=== PATIENT | male | born 1950 | race Caucasian/White ===

== ENCOUNTER 2022-11-12 09:18 | Emergency (ER) | payer OTHER ==
[~2022-11-12] VITALS: Ht 180.3 cm; Wt 82.0 kg
[2022-11-12 10:15] LABS: Basophils # (auto) 0.1 10 ^3/uL (0-0.2); Basophils % (auto) 0.7 % (0.0-2.0); Eosinophils # (auto) 0.1 10 ^3/uL (0-0.8); Hematocrit 43.7 % (41.0-53.0); Lymphocytes # (auto) 1.6 10 ^3/uL (0.4-5.4); Mean Corpuscular Hemoglobin 33.1 pg (28.0-32.0); Mean Corpuscular Hgb Conc. 34.3 g/dL (32.0-36.0); Mean Corpuscular Volume 96.4 fL (80.0-100.0); Monocytes # (auto) 0.6 10 ^3/uL (0-1.3); Monocytes % (auto) 5.6 % (0.0-12.0); Neutrophils # (auto) 8.5 10 ^3/uL (1.6-8.6); Neutrophils % (auto) 77.7 % (37.0-80.0); Nucleated Red Blood Cells % 0.1 %; Red Blood Cells 4.54 10^6/uL (4.5-5.90); Red Cell Distribution Width 14.9 % (11.8-14.3)
[2022-11-12 10:35] LABS: Albumin 3.7 g/dL (3.4-5.0); Calcium 8.5 mg/dL (8.5-10.1); Potassium 4.1 mmol/L (3.5-5.1)
[2022-11-12 10:40] LABS: BUN/Creatinine Ratio 9.9; Bilirubin, Total 0.6 mg/dL (0.2-1.0); Total Protein 7.1 g/dL (6.4-8.2)
[2022-11-12] MEDS ORDERED: BACDST PO (10:48)
[2022-11-12 10:59] LABS: Urine Bacteria NONE SEEN /hpf (None Seen); Urine Blood 3+ /uL (Negative); Urine Specific Gravity 1.021 (1.001-1.035); Urine WBC 391 /hpf (0 - 3)
[2022-11-12] MEDS ORDERED: cefTRIAXone SOD 1,000 MG VL IM ONE (12:30)
[2022-11-12 12:37] VITALS: BP 131/70
[2022-11-12] MEDS ORDERED: cefTRIAXone 1GM/50ML D5W 50 ML IV ONE (12:45)
[2022-11-12] MEDS ORDERED: LIDOCAINE 2% JELLY 11ml (GLYDO) ONE (13:27)
[2022-11-12] MEDS ORDERED: HYDROcodone-ACET 10/325MG TAB PO ONE (14:30)
== END 2022-11-12 16:35 | disposition home or self-care (01) ==
LOC: ER 09:20
DX: T83.84XA Pain due to genitourinary prosthetic devices, implants and grafts, initial encounter (principal); N40.0 Benign prostatic hyperplasia without lower urinary tract symptoms; N39.0 Urinary tract infection, site not specified; E78.5 Hyperlipidemia, unspecified; F17.210 Nicotine dependence, cigarettes, uncomplicated; F12.90 Cannabis use, unspecified, uncomplicated
CPT/HCPCS: 36415; 51702; 80053; 81001; 84484; 85025; 96365; 99284; J0696

== ENCOUNTER 2022-11-21 14:37 | Emergency (ER) | payer OTHER ==
[~2022-11-21] VITALS: Ht 180.3 cm; Wt 80.0 kg
[2022-11-21 14:37] VITALS: BP 122/61
[~2022-11-21 14:37] MED LIST: BACDST PO
[2022-11-23] MEDS ORDERED: LEVO200I5 IV (06:02)
[2022-11-23] MEDS ORDERED: TAM04C PO (06:02)
[2022-11-23] MEDS ORDERED: GABA100C PO (06:02)
== END 2022-11-22 00:52 | disposition left against medical advice (07) ==
LOC: ER 14:37
DX: M54.50 Low back pain, unspecified (principal); Z53.21 Procedure and treatment not carried out due to patient leaving prior to being seen by health care provider

== ENCOUNTER 2022-11-22 08:17 | Inpatient (IN) | payer OTHER ==
[~2022-11-22] VITALS: Ht 180.3 cm; Wt 77.3 kg
[2022-11-22 09:20] LABS: Basophils # (auto) 0 10 ^3/uL (0-0.2); Basophils % (auto) 0.5 % (0.0-2.0); Eosinophils # (auto) 0.1 10 ^3/uL (0-0.8); Eosinophils % (auto) 1.9 % (0.0-7.0); Hematocrit 39.6 % (41.0-53.0); Hemoglobin 13.5 g/dL (13.5-17.5); Lymphocytes % (auto) 14.4 % (10.0-50.0); Mean Corpuscular Hemoglobin 32.5 pg (28.0-32.0); Mean Corpuscular Hgb Conc. 34.1 g/dL (32.0-36.0); Mean Corpuscular Volume 95.3 fL (80.0-100.0); Monocytes # (auto) 0.4 10 ^3/uL (0-1.3); Monocytes % (auto) 5.4 % (0.0-12.0); Neutrophils # (auto) 5.3 10 ^3/uL (1.6-8.6); Neutrophils % (auto) 77.8 % (37.0-80.0); Nucleated Red Blood Cells % 0.1 %; Red Blood Cells 4.16 10^6/uL (4.5-5.90); Red Cell Distribution Width 14.8 % (11.8-14.3); White Blood Cell 6.8 10^3/uL (4.4-10.8)
[2022-11-22 09:42] LABS: Albumin 3.7 g/dL (3.4-5.0); BUN/Creatinine Ratio 13.3; Calcium 7.9 mg/dL (8.5-10.1)
[2022-11-22 09:44] LABS: Bilirubin, Total 0.6 mg/dL (0.2-1.0); Total Protein 6.1 g/dL (6.4-8.2)
[2022-11-22 13:02] LABS: Urine Bacteria NONE SEEN /hpf (None Seen); Urine Blood 2+ /uL (Negative); Urine Mucus FEW (None Seen); Urine Specific Gravity 1.032 (1.001-1.035); Urine WBC 5 /hpf (0 - 3)
[2022-11-22] MEDS ORDERED: MORPHINE SULFATE INJ 2 MG/ml SYRG IV PRN (17:30)
[2022-11-22] MEDS ORDERED: ONDANSETRON HCL 4 MG/2 ML VIAL IV PRN (17:30)
[2022-11-22] MEDS: SODIUM CHLORIDE 0.9% 1,000 ML IV SCH (17:30)
[2022-11-22] MEDS ORDERED: NITROGLYCERIN 0.4 MG SL TAB SL PRN (17:30)
[2022-11-22] MEDS: TAMSULOSIN HYDROCHLORIDE 0.4 MG CAP PO SCH (18:00)
[2022-11-22 18:34] LABS: Free T4 (Free Thyroxine) 0.75 ng/dL (0.89-1.76)
[2022-11-22] MEDS: HYDROcodone-ACET 5/325MG TAB PO PRN (21:26)
[2022-11-22] MEDS: GABAPENTIN 300 MG CAP PO SCH (21:53)
[2022-11-23] MEDS: SODIUM CHLORIDE 0.9% 1,000 ML IV SCH ×2 (03:39→13:34)
[2022-11-23] MEDS: HYDROcodone-ACET 5/325MG TAB PO PRN (04:41)
[2022-11-23 05:00] VITALS: BP 100/55
[2022-11-23] MEDS ORDERED: TAM04C PO (06:02)
[2022-11-23] MEDS ORDERED: GABA100C PO (06:02)
[2022-11-23] MEDS ORDERED: LEVO200I5 IV (06:02)
[2022-11-23] MEDS: GABAPENTIN 300 MG CAP PO SCH ×3 (06:03→22:00)
[2022-11-23 06:39] LABS: Calcium 7.6 mg/dL (8.5-10.1); Potassium 3.9 mmol/L (3.5-5.1)
[2022-11-23 08:00] VITALS: BP 93/59
[2022-11-23] MEDS: ENOXAPARIN SOD 40 MG/0.4 ML SYRINGE SC SCH (10:38)
[2022-11-23] MEDS: FAMOTIDINE 20 MG TAB PO SCH (10:38)
[2022-11-23 12:00] VITALS: BP 99/57
[2022-11-23] MEDS ORDERED: LEVOTHYROXINE SODIUM 25 MCG TAB PO ONE (13:45)
[2022-11-23] MEDS ORDERED: CYANOCOBALAMIN (B-12) 1000 MCG/1 ML VIAL IM ONE (13:45)
[2022-11-23 16:00] VITALS: BP 95/51
[2022-11-23] MEDS: TAMSULOSIN HYDROCHLORIDE 0.4 MG CAP PO SCH (18:30)
[2022-11-23] MEDS: methylPREDNISolone 4 MG TAB PO SCH ×2 (18:30→23:04)
[2022-11-23 20:00] VITALS: BP 92/50
[2022-11-23 22:00] VITALS: BP 92/50
[2022-11-23] MEDS: CALAMINE TOPical LOTION180 ML TOP SCH (22:00)
[2022-11-24 01:21] VITALS: BP 92/51
[2022-11-24] MEDS ORDERED: HYDROcodone-ACET 5/325MG TAB PO ONE (03:45)
[2022-11-24 05:00] VITALS: BP 101/56
[2022-11-24] MEDS: GABAPENTIN 300 MG CAP PO SCH ×3 (06:00→21:41)
[2022-11-24] MEDS: LEVOTHYROXINE SODIUM 25 MCG TAB PO SCH (06:03)
[2022-11-24] MEDS: methylPREDNISolone 4 MG TAB PO SCH ×2 (06:03→13:37)
[2022-11-24 08:00] VITALS: BP 154/64
[2022-11-24] MEDS: CYANOCOBALAMIN 500 MCG TAB PO SCH (10:11)
[2022-11-24] MEDS: FAMOTIDINE 20 MG TAB PO SCH (10:11)
[2022-11-24] MEDS: ENOXAPARIN SOD 40 MG/0.4 ML SYRINGE SC SCH (10:12)
[2022-11-24] MEDS: CALAMINE TOPical LOTION180 ML TOP SCH ×2 (10:12→21:43)
[2022-11-24] MEDS: CHOLECALCIFEROL (VITD3) 1,000UNIT=25mCg TAB PO SCH (10:12)
[2022-11-24] MEDS ORDERED: HYDROcodone-ACET 5/325MG TAB PO PRN (11:15)
[2022-11-24 12:00] VITALS: BP 101/59
[2022-11-24 16:00] VITALS: BP 100/50
[2022-11-24] MEDS: TAMSULOSIN HYDROCHLORIDE 0.4 MG CAP PO SCH (17:46)
[2022-11-24 22:00] VITALS: BP 96/53
[2022-11-24] MEDS ORDERED: CILOSTAZOL 100 MG TAB PO SCH (22:00)
[2022-11-24] MEDS ORDERED: methylPREDNISolone 4 MG TAB PO SCH (22:00)
[2022-11-25 05:00] VITALS: BP 100/54
[2022-11-25] MEDS: LEVOTHYROXINE SODIUM 25 MCG TAB PO SCH (06:35)
[2022-11-25] MEDS: GABAPENTIN 300 MG CAP PO SCH (06:35)
[2022-11-25] MEDS ORDERED: methylPREDNISolone SOD SUCC 40 MG/ML VL IV ONE (08:00)
[2022-11-25] MEDS ORDERED: LEV50T PO (08:07)
[2022-11-25] MEDS ORDERED: CALCCHW17 PO (08:07)
[2022-11-25] MEDS ORDERED: PRED20TA2 PO (08:07)
[2022-11-25] MEDS ORDERED: CARI-277 PO (08:07)
[2022-11-25] MEDS ORDERED: FAMO-161 PO (08:07)
[2022-11-25] MEDS ORDERED: CEL100T PO (08:07)
[2022-11-25] MEDS ORDERED: CYAN1TAB14 PO (08:07)
[2022-11-25] MEDS ORDERED: GABA300C10 PO (08:07)
[2022-11-25] MEDS ORDERED: CALALOT EX (08:13)
[2022-11-25 09:00] VITALS: BP 95/65
[2022-11-25] MEDS: ENOXAPARIN SOD 40 MG/0.4 ML SYRINGE SC SCH (09:13)
[2022-11-25] MEDS: FAMOTIDINE 20 MG TAB PO SCH (09:15)
[2022-11-25] MEDS: CYANOCOBALAMIN 500 MCG TAB PO SCH (09:15)
[2022-11-25] MEDS: CHOLECALCIFEROL (VITD3) 1,000UNIT=25mCg TAB PO SCH (09:16)
[2022-11-25 09:21] VITALS: BP 95/65
[2022-11-25] MEDS ORDERED: CELECOXIB 100 MG CAP PO SCH (10:00)
== END 2022-11-25 09:55 | disposition home health service (06) | DRG 552 ==
LOC: ER 08:17 → OVERFLOW 17:23 → CENTRAL 11-23 04:09
PROVIDERS: ADMIT Hospitalist; ATTEND Hospitalist
DX: M48.061 Spinal stenosis, lumbar region without neurogenic claudication (principal); N17.9 Acute kidney failure, unspecified; N39.0 Urinary tract infection, site not specified; F17.210 Nicotine dependence, cigarettes, uncomplicated; G62.9 Polyneuropathy, unspecified; N40.0 Benign prostatic hyperplasia without lower urinary tract symptoms; Z20.822 Contact with and (suspected) exposure to COVID-19; M48.02 Spinal stenosis, cervical region; M47.22 Other spondylosis with radiculopathy, cervical region; M47.816 Spondylosis without myelopathy or radiculopathy, lumbar region; J44.9 Chronic obstructive pulmonary disease, unspecified; Z82.49 Family history of ischemic heart disease and other diseases of the circulatory system
CPT/HCPCS: 36415; 71045; 72141; 72148; 76775; 78582; 80048; 80053; 81001; 82306; 82607; 83880; 84439; 84443; 84484; 85025; 85379; 87426; 87804; 93005; 93306; 93925; 93970; 97110; 97116; 97163; 97530; G0378; J2405

== ENCOUNTER 2022-12-06 14:46 | Inpatient (IN) | payer OTHER ==
[~2022-12-06] VITALS: Ht 185.4 cm; Wt 81.8 kg
[~2022-12-06 14:46] MED LIST changes: -BACDST PO; +CALALOT EX; +CALCCHW17 PO; +CARI-277 PO; +CEL100T PO; +CYAN1TAB14 PO; +FAMO-161 PO; +GABA300C10 PO; +LEV50T PO; +PRED20TA2 PO; +TAM04C PO
[2022-12-06 17:24] LABS: Basophils # (auto) 0.1 10 ^3/uL (0-0.2); Basophils % (auto) 1.5 % (0.0-2.0); Eosinophils # (auto) 0.2 10 ^3/uL (0-0.8); Hematocrit 35.7 % (41.0-53.0); Lymphocytes # (auto) 0.5 10 ^3/uL (0.4-5.4); Lymphocytes % (auto) 8.2 % (10.0-50.0); Mean Corpuscular Hemoglobin 32.7 pg (28.0-32.0); Mean Corpuscular Hgb Conc. 33.8 g/dL (32.0-36.0); Mean Corpuscular Volume 96.8 fL (80.0-100.0); Monocytes # (auto) 0.5 10 ^3/uL (0-1.3); Neutrophils # (auto) 4.5 10 ^3/uL (1.6-8.6); Neutrophils % (auto) 79.3 % (37.0-80.0); Nucleated Red Blood Cells % 0.2 %; Red Blood Cells 3.68 10^6/uL (4.5-5.90); Red Cell Distribution Width 15.2 % (11.8-14.3); White Blood Cell 5.7 10^3/uL (4.4-10.8)
[2022-12-06 17:45] LABS: BUN/Creatinine Ratio 20.3; Bilirubin, Total 1.3 mg/dL (0.2-1.0); Total Protein 5.8 g/dL (6.4-8.2)
[2022-12-06] MEDS ORDERED: ACETAMINOPHEN 325 MG TAB PO ONE (22:15)
[2022-12-06] MEDS ORDERED: ALBUMIN 25% 100 ML IV ONE (23:15)
[2022-12-06] MEDS ORDERED: SODIUM CHLORIDE 0.9% 1,000 ML IV ONE (23:15)
[2022-12-07] MEDS ORDERED: HYDROcodone-ACET 10/325MG TAB PO ONE (03:30)
[2022-12-07] MEDS ORDERED: SODIUM CHLORIDE 0.9% 1,000 ML IV SCH (05:30)
[2022-12-07] MEDS ORDERED: ONDANSETRON HCL 4 MG/2 ML VIAL IV PRN (05:30)
[2022-12-07] MEDS ORDERED: ALBUTEROL SULF 2.5 MG/0.5ML(0.5%) NEB SOLN NEB PRN (05:30)
[2022-12-07] MEDS ORDERED: LEVOTHYROXINE SODIUM 50 MCG TAB PO SCH (07:00)
[2022-12-07] MEDS ORDERED: CLOPIDOGREL BISULFATE 75 MG TAB PO SCH (10:00)
[2022-12-07] MEDS ORDERED: ENOXAPARIN SOD 40 MG/0.4 ML SYRINGE SC SCH (10:00)
[2022-12-07] MEDS ORDERED: PANTOPRAZOLE 40 MG TAB PO SCH (10:00)
[2022-12-07] MEDS ORDERED: predniSONE 20 MG TAB PO SCH (10:00)
[2022-12-07 10:17] LABS: Free T4 (Free Thyroxine) 0.97 ng/dL (0.89-1.76)
[2022-12-07 10:21] LABS: BUN/Creatinine Ratio 22.8; Bilirubin, Total 0.7 mg/dL (0.2-1.0); Calcium 7.7 mg/dL (8.5-10.1); Magnesium 2.4 mg/dL (1.6-2.6); Phosphorus 1.8 mg/dL (2.5-4.90); Potassium 3.8 mmol/L (3.5-5.1); Total Protein 5.5 g/dL (6.4-8.2)
[2022-12-07] MEDS: ACETAMINOPHEN 325 MG TAB PO PRN ×2 (10:57→16:11)
[2022-12-07 11:01] VITALS: BP 103/58
[2022-12-07] MEDS ORDERED: POTASSIUM PHOSPHATE 44 MEQ in D5W 5% 250 ML IV ONE (11:30)
[2022-12-07] MEDS ORDERED: CYANOCOBALAMIN (B-12) 1000 MCG/1 ML VIAL IM ONE (11:30)
[2022-12-07] MEDS ORDERED: ERGOCALCIFEROL 50,000 UNIT(1.25MG) CAP PO SCH (11:30)
[2022-12-07 13:27] LABS: Urine Bacteria NONE SEEN /hpf (None Seen); Urine Blood Negative /uL (Negative); Urine Specific Gravity 1.031 (1.001-1.035); Urine WBC 2 /hpf (0 - 3)
[2022-12-07 13:56] LABS: Cannabinoid Screen, Urine POSITIVE (NEGATIVE)
[2022-12-07 13:58] LABS: Alcohol, Urine < 3.0 mg/dL (0-10); Amphetamine Screen, Urine NEGATIVE (NEGATIVE); Barbiturate Scree,Urine NEGATIVE (NEGATIVE); Benzodiazephine Screen, Urine NEGATIVE (NEGATIVE); Cocaine Screen, Urine NEGATIVE (NEGATIVE); Opiate Scree,Urine NEGATIVE (NEGATIVE); Phencyclidine Screen, Urine NEGATIVE (NEGATIVE)
[2022-12-07 14:00] VITALS: BP 130/70
[2022-12-07] MEDS ORDERED: ERGO1CAP23 PO (15:37)
[2022-12-07] MEDS ORDERED: LEV50T PO ×3 (15:37→15:47)
[2022-12-07] MEDS ORDERED: TAMSULOSIN HYDROCHLORIDE 0.4 MG CAP PO SCH (18:00)
[2022-12-07] MEDS ORDERED: LEVO750T8 PO (18:26)
[2022-12-08] MEDS ORDERED: LEVOTHYROXINE SODIUM 50 MCG TAB PO SCH (07:00)
== END 2022-12-07 19:28 | disposition home or self-care (01) | DRG 191 ==
LOC: EDBD 14:46 → ER 14:46 → OVERFLOW 12-07 05:26
PROVIDERS: ADMIT Nurse Practitioner; ATTEND Internal Medicine
DX: J47.9 Bronchiectasis, uncomplicated (principal); E44.0 Moderate protein-calorie malnutrition; N17.9 Acute kidney failure, unspecified; I95.9 Hypotension, unspecified; Z88.1 Allergy status to other antibiotic agents; E03.9 Hypothyroidism, unspecified; E55.9 Vitamin D deficiency, unspecified; E78.5 Hyperlipidemia, unspecified; E86.0 Dehydration; F17.210 Nicotine dependence, cigarettes, uncomplicated; I69.30 Unspecified sequelae of cerebral infarction; N40.0 Benign prostatic hyperplasia without lower urinary tract symptoms; Z82.49 Family history of ischemic heart disease and other diseases of the circulatory system; R74.01 Elevation of levels of liver transaminase levels; Z20.822 Contact with and (suspected) exposure to COVID-19; Z68.23 Body mass index [BMI] 23.0-23.9, adult
CPT/HCPCS: 36415; 71045; 71250; 80053; 80307; 81001; 82306; 82607; 83036; 83605; 83735; 83880; 84100; 84439; 84443; 84484; 85025; 87040; 87426; 93005; 96365; 96372; G0378; J7060; P9047

== ENCOUNTER 2023-05-02 10:37 | Emergency (ER) | payer OTHER ==
[~2023-05-02] VITALS: Ht 154.9 cm; Wt 79.4 kg
[~2023-05-02 10:37] MED LIST changes: +ERGO1CAP23 PO; +GABA-1250 PO; -GABA300C10 PO; +LEVO750T8 PO; -TAM04C PO; +TAMS-35 PO
[2023-05-02 10:42] VITALS: BP 137/86; PULSE 81; RESP 20; TEMP 99; O2SAT 99
[2023-05-02] MEDS ORDERED: NEOMYCIN-BACITRACIN-POLYM UNITDOSE PKG TOP OINT TOP ONE (13:00)
== END 2023-05-02 13:26 | disposition home or self-care (01) ==
LOC: ER 10:37
DX: R51.9 Headache, unspecified (principal); J44.9 Chronic obstructive pulmonary disease, unspecified; E78.5 Hyperlipidemia, unspecified; F17.210 Nicotine dependence, cigarettes, uncomplicated; Z86.73 Personal history of transient ischemic attack (TIA), and cerebral infarction without residual deficits; Z79.2 Long term (current) use of antibiotics; Z79.899 Other long term (current) drug therapy; Z88.1 Allergy status to other antibiotic agents; Y04.2XXA Assault by strike against or bumped into by another person, initial encounter; Y93.89 Activity, other specified; Y92.89 Other specified places as the place of occurrence of the external cause; Y99.8 Other external cause status
CPT/HCPCS: 70450

== ENCOUNTER 2023-05-22 16:18 | Emergency (ER) | payer OTHER ==
[~2023-05-22] VITALS: Ht 180.3 cm; Wt 79.5 kg
[2023-05-22 16:25] VITALS: BP 118/66; RESP 18; O2SAT 97
[2023-05-22 16:30] VITALS: PULSE 67
[2023-05-22 16:55] LABS: Basophils # (auto) 0 10 ^3/uL (0-0.2); Basophils % (auto) 0.5 % (0.0-2.0); Eosinophils # (auto) 0 10 ^3/uL (0-0.8); Eosinophils % (auto) 0.2 % (0.0-7.0); Hematocrit 39.9 % (41.0-53.0); Hemoglobin 13.5 g/dL (13.5-17.5); Lymphocytes # (auto) 0.9 10 ^3/uL (0.4-5.4); Lymphocytes % (auto) 9.9 % (10.0-50.0); Mean Corpuscular Volume 94.3 fL (80.0-100.0); Monocytes # (auto) 0.2 10 ^3/uL (0-1.3); Monocytes % (auto) 2.2 % (0.0-12.0); Neutrophils # (auto) 7.5 10 ^3/uL (1.6-8.6); Neutrophils % (auto) 87.2 % (37.0-80.0); Red Blood Cells 4.23 10^6/uL (4.5-5.90); Red Cell Distribution Width 14.2 % (11.8-14.3); White Blood Cell 8.6 10^3/uL (4.4-10.8)
[2023-05-22 17:12] LABS: INR 1.06 (0.9-1.15); Partial Thromboplastin Time 27.8 SEC (24.5-34.5); Prothrombin Time 11.1 sec (9.3-11.8)
[2023-05-22 17:15] LABS: Alanine Aminotransferase 19 U/L (7-40); Albumin 4.6 g/dL (3.2-4.8); Alkaline Phosphatase 110 U/L (46-116); Anion Gap 6.5 (5-15); Aspartate Aminotransferase 20 U/L (13-40); Blood Urea Nitrogen 12 mg/dL (9-23); Calcium 9.4 mg/dL (8.7-10.4); Carbon Dioxide 25.5 mmol/L (20-30); Chloride 105 mmol/L (98-107); Glucose 134 mg/dL (74-106); Potassium 4.4 mmol/L (3.5-5.1); Sodium 137 mmol/L (136-145)
[2023-05-22 17:16] LABS: Bilirubin, Total 0.4 mg/dL (0.2-1.0); Total Protein 6.6 g/dL (5.7-8.2)
[2023-05-22] MEDS ORDERED: KETOROLAC TROMETH 30 MG/ML 1ML VIAL IM ONE (18:45)
== END 2023-05-22 22:38 | disposition home or self-care (01) ==
LOC: ER 16:18
DX: S06.0X0A Concussion without loss of consciousness, initial encounter (principal); J44.9 Chronic obstructive pulmonary disease, unspecified; E78.5 Hyperlipidemia, unspecified; F17.210 Nicotine dependence, cigarettes, uncomplicated; F12.90 Cannabis use, unspecified, uncomplicated; Z88.0 Allergy status to penicillin; Z79.899 Other long term (current) drug therapy; Z86.73 Personal history of transient ischemic attack (TIA), and cerebral infarction without residual deficits; X58.XXXA Exposure to other specified factors, initial encounter; Y93.89 Activity, other specified; Y92.89 Other specified places as the place of occurrence of the external cause; Y99.8 Other external cause status
CPT/HCPCS: 36415; 70450; 71045; 80053; 83880; 84484; 85025; 85610; 85730; 93005

== ENCOUNTER 2023-05-29 10:01 | Emergency (ER) | payer OTHER ==
[~2023-05-29] VITALS: Ht 180.3 cm; Wt 76.0 kg
[2023-05-29 10:46] LABS: Basophils # (auto) 0.1 10 ^3/uL (0-0.2); Eosinophils # (auto) 0.1 10 ^3/uL (0-0.8); Eosinophils % (auto) 1.7 % (0.0-7.0); Hematocrit 42.4 % (41.0-53.0); Lymphocytes # (auto) 1.2 10 ^3/uL (0.4-5.4); Mean Corpuscular Hemoglobin 31.1 pg (28.0-32.0); Mean Corpuscular Hgb Conc. 32.9 g/dL (32.0-36.0); Mean Corpuscular Volume 94.6 fL (80.0-100.0); Monocytes # (auto) 0.6 10 ^3/uL (0-1.3); Monocytes % (auto) 7.9 % (0.0-12.0); Neutrophils # (auto) 5.5 10 ^3/uL (1.6-8.6); Neutrophils % (auto) 73.4 % (37.0-80.0); Red Blood Cells 4.48 10^6/uL (4.5-5.90); Red Cell Distribution Width 14.2 % (11.8-14.3); White Blood Cell 7.5 10^3/uL (4.4-10.8)
[2023-05-29 10:59] LABS: Alanine Aminotransferase 21 U/L (7-40); Albumin 4.5 g/dL (3.2-4.8); Alkaline Phosphatase 116 U/L (46-116); Anion Gap 6.9 (5-15); Aspartate Aminotransferase 30 U/L (13-40); BUN/Creatinine Ratio 10.7 (10.0-20.0); Bilirubin, Total 0.6 mg/dL (0.2-1.0); Blood Urea Nitrogen 12 mg/dL (9-23); Calcium 9.2 mg/dL (8.5-10.1); Carbon Dioxide 28.1 mmol/L (20-30); Chloride 105 mmol/L (98-107); Glucose 96 mg/dL (74-106); Potassium 3.9 mmol/L (3.5-5.1); Sodium 140 mmol/L (136-145); Total Protein 6.9 g/dL (5.7-8.2)
[2023-05-29 11:05] LABS: INR 1.07 (0.9-1.15); Partial Thromboplastin Time 30.5 SEC (24.5-34.5); Prothrombin Time 11.2 sec (9.3-11.8)
[2023-05-29 11:21] LABS: Urine Bacteria NONE SEEN /hpf (None Seen); Urine Blood Negative /uL (Negative); Urine Clarity Clear (Clear); Urine Color Yellow (Yellow); Urine Protein, UAD Negative (Negative); Urine Specific Gravity 1.009 (1.001-1.035); Urine Urobilinogen Normal (Negative); Urine WBC <1 /hpf (0 - 3); Urine pH 5.5 (5.0-8.0)
[2023-05-29 13:08] VITALS: BP 132/68; PULSE 62; RESP 19; TEMP 98.5; O2SAT 100
== END 2023-05-29 13:11 | disposition home or self-care (01) ==
LOC: ER 10:01
DX: R53.1 Weakness (principal); R05.9 Cough, unspecified; E78.5 Hyperlipidemia, unspecified; J44.9 Chronic obstructive pulmonary disease, unspecified; F17.210 Nicotine dependence, cigarettes, uncomplicated; F12.90 Cannabis use, unspecified, uncomplicated; Z88.1 Allergy status to other antibiotic agents; Z79.899 Other long term (current) drug therapy; Z86.73 Personal history of transient ischemic attack (TIA), and cerebral infarction without residual deficits
CPT/HCPCS: 36415; 71046; 80053; 81001; 85025; 85610; 85730; 93005

== ENCOUNTER 2023-06-07 11:08 | Emergency (ER) | payer OTHER ==
[~2023-06-07] VITALS: Ht 180.3 cm; Wt 79.7 kg
[2023-06-07] MEDS ORDERED: IOHEXOL 300 MG/ML 100ML BOTTLE IJ ONE ×2 (13:57→14:38)
[2023-06-07 14:33] LABS: Basophils # (auto) 0.1 10 ^3/uL (0-0.2); Eosinophils # (auto) 0 10 ^3/uL (0-0.8); Eosinophils % (auto) 0.2 % (0.0-7.0); Hematocrit 40.5 % (41.0-53.0); Hemoglobin 13.5 g/dL (13.5-17.5); Lymphocytes # (auto) 0.8 10 ^3/uL (0.4-5.4); Mean Corpuscular Hemoglobin 31.7 pg (28.0-32.0); Mean Corpuscular Hgb Conc. 33.3 g/dL (32.0-36.0); Mean Corpuscular Volume 95.4 fL (80.0-100.0); Monocytes # (auto) 0.2 10 ^3/uL (0-1.3); Monocytes % (auto) 2.5 % (0.0-12.0); Neutrophils # (auto) 6.5 10 ^3/uL (1.6-8.6); Neutrophils % (auto) 86.3 % (37.0-80.0); Red Blood Cells 4.24 10^6/uL (4.5-5.90); Red Cell Distribution Width 14.7 % (11.8-14.3); White Blood Cell 7.5 10^3/uL (4.4-10.8)
[2023-06-07 14:43] LABS: Alanine Aminotransferase 30 U/L (7-40); Albumin 4.7 g/dL (3.2-4.8); Alkaline Phosphatase 201 U/L (46-116); Anion Gap 6 (5-15); Aspartate Aminotransferase 48 U/L (13-40); BUN/Creatinine Ratio 10.5 (10.0-20.0); Bilirubin, Total 0.5 mg/dL (0.2-1.0); Blood Urea Nitrogen 11 mg/dL (9-23); Calcium 9.4 mg/dL (8.7-10.4); Carbon Dioxide 27 mmol/L (20-30); Chloride 104 mmol/L (98-107); Glucose 121 mg/dL (74-106); Potassium 4.5 mmol/L (3.5-5.1); Sodium 137 mmol/L (136-145); Total Protein 7.3 g/dL (5.7-8.2)
[2023-06-07 15:00] VITALS: BP 130/65; PULSE 65; RESP 18; O2SAT 100
== END 2023-06-07 16:19 | disposition home or self-care (01) ==
LOC: ER 11:08
DX: R91.1 Solitary pulmonary nodule (principal); R19.03 Right lower quadrant abdominal swelling, mass and lump; J44.9 Chronic obstructive pulmonary disease, unspecified; E78.5 Hyperlipidemia, unspecified; F17.210 Nicotine dependence, cigarettes, uncomplicated; F12.90 Cannabis use, unspecified, uncomplicated; Z86.73 Personal history of transient ischemic attack (TIA), and cerebral infarction without residual deficits; Z88.8 Allergy status to other drugs, medicaments and biological substances; Z79.899 Other long term (current) drug therapy
CPT/HCPCS: 36415; 74177; 80053; 85025; 99285; Q9967

== ENCOUNTER 2023-06-14 14:56 | Emergency (ER) | payer OTHER ==
[~2023-06-14] VITALS: Ht 182.9 cm; Wt 81.8 kg
[2023-06-14 15:20] VITALS: PULSE 58; RESP 13; TEMP 98.1; O2SAT 95
[2023-06-14 15:59] LABS: Basophils # (auto) 0.1 10 ^3/uL (0-0.2); Basophils % (auto) 0.9 % (0.0-2.0); Eosinophils # (auto) 0 10 ^3/uL (0-0.8); Eosinophils % (auto) 0.1 % (0.0-7.0); Hematocrit 38.3 % (41.0-53.0); Hemoglobin 12.9 g/dL (13.5-17.5); Lymphocytes # (auto) 0.7 10 ^3/uL (0.4-5.4); Lymphocytes % (auto) 8.7 % (10.0-50.0); Mean Corpuscular Hgb Conc. 33.7 g/dL (32.0-36.0); Mean Corpuscular Volume 94.9 fL (80.0-100.0); Monocytes # (auto) 0.3 10 ^3/uL (0-1.3); Monocytes % (auto) 3.1 % (0.0-12.0); Neutrophils # (auto) 7.3 10 ^3/uL (1.6-8.6); Neutrophils % (auto) 87.2 % (37.0-80.0); Nucleated Red Blood Cells % 0.1 %; Red Blood Cells 4.03 10^6/uL (4.5-5.90); Red Cell Distribution Width 14.8 % (11.8-14.3); White Blood Cell 8.4 10^3/uL (4.4-10.8)
[2023-06-14 16:18] LABS: Alanine Aminotransferase 54 U/L (7-40); Albumin 4.5 g/dL (3.2-4.8); Alkaline Phosphatase 168 U/L (46-116); Anion Gap 7 (5-15); Aspartate Aminotransferase 49 U/L (13-40); BUN/Creatinine Ratio 13.6 (10.0-20.0); Bilirubin, Total 0.5 mg/dL (0.2-1.0); Blood Urea Nitrogen 16 mg/dL (9-23); Calcium 9.1 mg/dL (8.7-10.4); Carbon Dioxide 28 mmol/L (20-30); Chloride 105 mmol/L (98-107); Glucose 146 mg/dL (74-106); Potassium 4.4 mmol/L (3.5-5.1); Sodium 140 mmol/L (136-145)
[2023-06-14 16:45] LABS: Urine Bacteria FEW /hpf (None Seen); Urine Blood Negative /uL (Negative); Urine Clarity Clear (Clear); Urine Color Colorless (Yellow); Urine Protein, UAD Negative (Negative); Urine Specific Gravity 1.009 (1.001-1.035); Urine Urobilinogen Normal (Negative); Urine WBC <1 /hpf (0 - 3)
[2023-06-14] MEDS ORDERED: SODIUM CHLORIDE 0.9% 1,000 ML IV ONE (17:15)
[2023-06-14 17:45] LABS: INR 1.09 (0.9-1.15); Partial Thromboplastin Time 29.6 SEC (24.5-34.5); Prothrombin Time 11.4 sec (9.3-11.8)
[2023-06-14 18:00] VITALS: BP 119/84; PULSE 60; RESP 16; O2SAT 95
== END 2023-06-14 18:20 | disposition left against medical advice (07) ==
LOC: EDBD 14:56 → ER 14:56 → EDUNIT# 14:56 → ER 18:20
DX: G45.9 Transient cerebral ischemic attack, unspecified (principal)
CPT/HCPCS: 36415; 71045; 80053; 81001; 83880; 84484; 85025; 85610; 85730; 93005; 96360

== ENCOUNTER 2023-06-16 05:14 | Inpatient (IN) | payer OTHER ==
[~2023-06-16] VITALS: Ht 182.9 cm; Wt 104.0 kg
[2023-06-16 05:39] VITALS: O2SAT 95
[2023-06-16 06:58] LABS: Urine Bacteria NONE SEEN /hpf (None Seen); Urine Blood Negative /uL (Negative); Urine Clarity Clear (Clear); Urine Color Colorless (Yellow); Urine Protein, UAD Negative (Negative); Urine Specific Gravity 1.008 (1.001-1.035); Urine Urobilinogen Normal (Negative); Urine WBC <1 /hpf (0 - 3)
[2023-06-16 07:07] LABS: Alanine Aminotransferase 59 U/L (7-40); Albumin 4.7 g/dL (3.2-4.8); Alkaline Phosphatase 171 U/L (46-116); Anion Gap 6 (5-15); Aspartate Aminotransferase 54 U/L (13-40); BUN/Creatinine Ratio 10.5 (10.0-20.0); Blood Urea Nitrogen 10 mg/dL (9-23); Calcium 9.2 mg/dL (8.7-10.4); Carbon Dioxide 26 mmol/L (20-30); Chloride 107 mmol/L (98-107); Glucose 82 mg/dL (74-106); Magnesium 2.2 mg/dL (1.6-2.6); Potassium 4.1 mmol/L (3.5-5.1); Sodium 139 mmol/L (136-145)
[2023-06-16 07:08] LABS: Bilirubin, Total 0.5 mg/dL (0.2-1.0); Total Protein 6.6 g/dL (5.7-8.2)
[2023-06-16] MEDS ORDERED: IOHEXOL 350 MG/ML 100ML IJ ONE (07:34)
[2023-06-16 07:36] LABS: Basophils # (auto) 0.1 10 ^3/uL (0-0.2); Basophils % (auto) 0.9 % (0.0-2.0); Eosinophils # (auto) 0.1 10 ^3/uL (0-0.8); Eosinophils % (auto) 1.4 % (0.0-7.0); Hematocrit 38.8 % (41.0-53.0); Lymphocytes # (auto) 2.2 10 ^3/uL (0.4-5.4); Mean Corpuscular Hemoglobin 32.1 pg (28.0-32.0); Mean Corpuscular Hgb Conc. 33.4 g/dL (32.0-36.0); Mean Corpuscular Volume 96.1 fL (80.0-100.0); Monocytes # (auto) 0.8 10 ^3/uL (0-1.3); Monocytes % (auto) 8.3 % (0.0-12.0); Neutrophils # (auto) 6.2 10 ^3/uL (1.6-8.6); Neutrophils % (auto) 66.4 % (37.0-80.0); Nucleated Red Blood Cells % 0.2 %; Red Blood Cells 4.03 10^6/uL (4.5-5.90); Red Cell Distribution Width 15.4 % (11.8-14.3); White Blood Cell 9.4 10^3/uL (4.4-10.8)
[2023-06-16 07:50] VITALS: PULSE 48; RESP 12; O2SAT 97
[2023-06-16] MEDS ORDERED: AZITHROMYCIN 500MG/ 250ML 250 ML IV ONE (08:30)
[2023-06-16] MEDS ORDERED: cefTRIAXone 1GM/50ML D5W 50 ML IV ONE (08:30)
[2023-06-16] MEDS ORDERED: ONDANSETRON HCL 4 MG/2 ML VIAL IV PRN (10:45)
[2023-06-16] MEDS ORDERED: MORPHINE SULFATE INJ 2 MG/ml SYRG IV PRN (10:45)
[2023-06-16] MEDS ORDERED: NITROGLYCERIN 0.4 MG SL TAB SL PRN (10:45)
[2023-06-16] MEDS ORDERED: DOCUSATE SOD 100 MG CAP PO PRN (10:45)
[2023-06-16] MEDS: ZINC SULFATE 220mg CAP or TAB PO SCH (12:40)
[2023-06-16] MEDS: MAGNESIUM OXIDE 400 MG TAB PO SCH ×2 (12:49→22:05)
[2023-06-16] MEDS: MULTIPLE VITAMIN TAB PO SCH (12:49)
[2023-06-16] MEDS: FOLIC ACID 1 MG TAB PO SCH (12:49)
[2023-06-16] MEDS: SODIUM CHLOR 0.9% PF (SALINE LOCK) 10ML VIAL/SYR IV SCH ×2 (12:50→22:06)
[2023-06-16 13:49] LABS: INR 1.1 (0.9-1.15); Partial Thromboplastin Time 27.6 SEC (24.5-34.5); Prothrombin Time 11.5 sec (9.3-11.8)
[2023-06-16] MEDS: GABAPENTIN 300 MG CAP PO SCH ×2 (14:00→22:05)
[2023-06-16] MEDS: ACETAMINOPHEN 325 MG TAB PO PRN (18:20)
[2023-06-16 19:30] VITALS: PULSE 56; RESP 15; O2SAT 93
[2023-06-16] MEDS: CELECOXIB 100 MG CAP PO SCH (22:06)
[2023-06-16 22:59] VITALS: BP 109/62; PULSE 55; RESP 14; TEMP 97.6; O2SAT 97
[2023-06-16 23:03] VITALS: BP 109/62; PULSE 55; RESP 19; TEMP 97.6; O2SAT 97
[2023-06-17] MEDS: ACETAMINOPHEN 325 MG TAB PO PRN (04:00)
[2023-06-17 05:01] VITALS: BP 130/74; PULSE 48; RESP 17; TEMP 97.8; O2SAT 93
[2023-06-17 06:05] LABS: Basophils # (auto) 0 10 ^3/uL (0-0.2); Basophils % (auto) 0.6 % (0.0-2.0); Eosinophils # (auto) 0.2 10 ^3/uL (0-0.8); Eosinophils % (auto) 2.4 % (0.0-7.0); Hematocrit 37.6 % (41.0-53.0); Hemoglobin 12.4 g/dL (13.5-17.5); Lymphocytes # (auto) 1.3 10 ^3/uL (0.4-5.4); Lymphocytes % (auto) 16.4 % (10.0-50.0); Mean Corpuscular Hemoglobin 31.5 pg (28.0-32.0); Mean Corpuscular Volume 95.4 fL (80.0-100.0); Monocytes # (auto) 0.7 10 ^3/uL (0-1.3); Monocytes % (auto) 8.6 % (0.0-12.0); Neutrophils # (auto) 5.5 10 ^3/uL (1.6-8.6); Nucleated Red Blood Cells % 0.1 %; Red Blood Cells 3.94 10^6/uL (4.5-5.90); Red Cell Distribution Width 15.1 % (11.8-14.3); White Blood Cell 7.6 10^3/uL (4.4-10.8)
[2023-06-17 06:20] LABS: Alanine Aminotransferase 59 U/L (7-40); Albumin 3.7 g/dL (3.2-4.8); Alkaline Phosphatase 167 U/L (46-116); Anion Gap 6 (5-15); Aspartate Aminotransferase 65 U/L (13-40); BUN/Creatinine Ratio 10.2 (10.0-20.0); Blood Urea Nitrogen 9 mg/dL (9-23); Calcium 8.9 mg/dL (8.7-10.4); Carbon Dioxide 28 mmol/L (20-30); Chloride 105 mmol/L (98-107); Glucose 75 mg/dL (74-106); Magnesium 2.1 mg/dL (1.6-2.6); Potassium 4.4 mmol/L (3.5-5.1); Sodium 139 mmol/L (136-145)
[2023-06-17 06:21] LABS: Bilirubin, Total 0.5 mg/dL (0.2-1.0); Total Protein 5.8 g/dL (5.7-8.2)
[2023-06-17] MEDS: SODIUM CHLOR 0.9% PF (SALINE LOCK) 10ML VIAL/SYR IV SCH ×3 (06:44→20:31)
[2023-06-17] MEDS: LEVOTHYROXINE SODIUM 50 MCG TAB PO SCH (06:44)
[2023-06-17] MEDS: GABAPENTIN 300 MG CAP PO SCH ×3 (06:44→20:30)
[2023-06-17 08:00] VITALS: BP 171/62; PULSE 55; PULSE 65; RESP 16; RESP 18; TEMP 97.5; O2SAT 95
[2023-06-17 09:18] VITALS: BP 130/67; PULSE 55; RESP 18; TEMP 97.1; O2SAT 95
[2023-06-17] MEDS: TAMSULOSIN HYDROCHLORIDE 0.4 MG CAP PO SCH (09:41)
[2023-06-17] MEDS: CELECOXIB 100 MG CAP PO SCH ×2 (09:41→20:30)
[2023-06-17] MEDS: MULTIPLE VITAMIN TAB PO SCH (09:41)
[2023-06-17] MEDS: MAGNESIUM OXIDE 400 MG TAB PO SCH ×2 (09:41→20:31)
[2023-06-17] MEDS: ZINC SULFATE 220mg CAP or TAB PO SCH (09:41)
[2023-06-17] MEDS: FOLIC ACID 1 MG TAB PO SCH (09:42)
[2023-06-17] MEDS: FAMOTIDINE 20 MG TAB PO SCH (09:42)
[2023-06-17] MEDS: cefTRIAXone 1GM/50ML D5W 50 ML IV SCH (09:42)
[2023-06-17] MEDS: AZITHROMYCIN 500MG/ 250ML 250 ML IV SCH (10:27)
[2023-06-17 12:20] VITALS: BP 105/67; PULSE 57; RESP 19; TEMP 97.8; O2SAT 93
[2023-06-17] MEDS ORDERED: ZOLPIDEM TARTRATE 5 MG TAB PO PRN (12:30)
[2023-06-17 13:13] LABS: COVID19 ANTIGEN SOFIA FIA NEGATIVE (NEGATIVE)
[2023-06-17 20:00] VITALS: PULSE 68; PULSE 74; RESP 18; O2SAT 95
[2023-06-17 22:00] VITALS: BP 100/57; PULSE 68; RESP 18; TEMP 97.8; O2SAT 96
[2023-06-18] MEDS: HYDROcodone-ACET 5/325MG TAB PO PRN ×2 (00:28→07:04)
[2023-06-18 05:00] VITALS: BP 117/74; PULSE 73; RESP 18; TEMP 97.8; O2SAT 92
[2023-06-18] MEDS: GABAPENTIN 300 MG CAP PO SCH ×2 (06:13→13:54)
[2023-06-18] MEDS: LEVOTHYROXINE SODIUM 50 MCG TAB PO SCH (06:13)
[2023-06-18] MEDS: SODIUM CHLOR 0.9% PF (SALINE LOCK) 10ML VIAL/SYR IV SCH ×2 (06:17→13:54)
[2023-06-18 08:00] VITALS: PULSE 66
[2023-06-18 08:46] VITALS: BP 98/57; PULSE 67; RESP 20; TEMP 98.7; O2SAT 93
[2023-06-18] MEDS: MULTIPLE VITAMIN TAB PO SCH (08:53)
[2023-06-18] MEDS: MAGNESIUM OXIDE 400 MG TAB PO SCH (08:53)
[2023-06-18] MEDS: CELECOXIB 100 MG CAP PO SCH (08:54)
[2023-06-18] MEDS: FOLIC ACID 1 MG TAB PO SCH (08:54)
[2023-06-18] MEDS: FAMOTIDINE 20 MG TAB PO SCH (08:54)
[2023-06-18] MEDS: TAMSULOSIN HYDROCHLORIDE 0.4 MG CAP PO SCH (08:54)
[2023-06-18] MEDS: ZINC SULFATE 220mg CAP or TAB PO SCH (08:54)
[2023-06-18] MEDS: cefTRIAXone 1GM/50ML D5W 50 ML IV SCH (08:55)
[2023-06-18] MEDS: AZITHROMYCIN 500MG/ 250ML 250 ML IV SCH (09:54)
[2023-06-18 12:40] VITALS: BP 91/57; PULSE 71; RESP 20; TEMP 98.2; O2SAT 95
== END 2023-06-18 15:00 | disposition left against medical advice (07) | DRG 193 ==
LOC: ER 05:14 → EDBD 05:14 → TELE 10:45 → TELE-WESTW 21:06
PROVIDERS: ADMIT Nurse Practitioner Family; ATTEND Nurse Practitioner Family
DX: J18.9 Pneumonia, unspecified organism (principal); J96.01 Acute respiratory failure with hypoxia; J44.0 Chronic obstructive pulmonary disease with (acute) lower respiratory infection; C78.7 Secondary malignant neoplasm of liver and intrahepatic bile duct; R04.2 Hemoptysis; C78.00 Secondary malignant neoplasm of unspecified lung; E66.9 Obesity, unspecified; R00.1 Bradycardia, unspecified; E78.00 Pure hypercholesterolemia, unspecified; F10.20 Alcohol dependence, uncomplicated; F17.210 Nicotine dependence, cigarettes, uncomplicated; G62.9 Polyneuropathy, unspecified; Z20.822 Contact with and (suspected) exposure to COVID-19; I10 Essential (primary) hypertension; H53.2 Diplopia; E07.9 Disorder of thyroid, unspecified; I95.1 Orthostatic hypotension; K21.9 Gastro-esophageal reflux disease without esophagitis; N40.0 Benign prostatic hyperplasia without lower urinary tract symptoms; Z53.29 Procedure and treatment not carried out because of patient's decision for other reasons; Z82.49 Family history of ischemic heart disease and other diseases of the circulatory system; Z85.820 Personal history of malignant melanoma of skin; Z86.73 Personal history of transient ischemic attack (TIA), and cerebral infarction without residual deficits; Z88.1 Allergy status to other antibiotic agents; Z91.81 History of falling; Z68.31 Body mass index [BMI] 31.0-31.9, adult; Z71.6 Tobacco abuse counseling; Z71.41 Alcohol abuse counseling and surveillance of alcoholic
CPT/HCPCS: 36415; 70450; 71045; 71275; 80053; 81001; 83605; 83690; 83735; 83880; 84484; 85025; 85610; 85730; 87426; 93005; 93306; 96360; 96365; 96368; G0378; J0696

== ENCOUNTER 2023-06-21 22:21 | Inpatient (IN) | payer OTHER ==
[~2023-06-21] VITALS: Ht 180.3 cm; Wt 67.8 kg
[~2023-06-21 22:21] MED LIST changes: -LEVO750T8 PO
[2023-06-21 22:57] LABS: Basophils # (auto) 0.1 10 ^3/uL (0-0.2); Basophils % (auto) 1.3 % (0.0-2.0); Eosinophils # (auto) 0 10 ^3/uL (0-0.8); Eosinophils % (auto) 0.3 % (0.0-7.0); Hematocrit 36.6 % (41.0-53.0); Hemoglobin 12.2 g/dL (13.5-17.5); Lymphocytes # (auto) 1.1 10 ^3/uL (0.4-5.4); Lymphocytes % (auto) 13.8 % (10.0-50.0); Mean Corpuscular Hemoglobin 31.7 pg (28.0-32.0); Mean Corpuscular Hgb Conc. 33.3 g/dL (32.0-36.0); Mean Corpuscular Volume 95.2 fL (80.0-100.0); Monocytes # (auto) 0.6 10 ^3/uL (0-1.3); Monocytes % (auto) 7.3 % (0.0-12.0); Neutrophils % (auto) 77.3 % (37.0-80.0); Nucleated Red Blood Cells % 0.1 %; Red Blood Cells 3.84 10^6/uL (4.5-5.90); Red Cell Distribution Width 15.1 % (11.8-14.3); White Blood Cell 7.7 10^3/uL (4.4-10.8)
[2023-06-21 23:14] LABS: Alanine Aminotransferase 83 U/L (7-40); Albumin 4.4 g/dL (3.2-4.8); Alkaline Phosphatase 239 U/L (46-116); Anion Gap 5 (5-15); Aspartate Aminotransferase 88 U/L (13-40); BUN/Creatinine Ratio 11.9 (10.0-20.0); Bilirubin, Total 0.4 mg/dL (0.2-1.0); Blood Urea Nitrogen 13 mg/dL (9-23); Calcium 9.4 mg/dL (8.7-10.4); Carbon Dioxide 28 mmol/L (20-30); Chloride 105 mmol/L (98-107); Glucose 116 mg/dL (74-106); Potassium 4.5 mmol/L (3.5-5.1); Sodium 138 mmol/L (136-145); Total Protein 6.8 g/dL (5.7-8.2)
[2023-06-22 00:35] VITALS: PULSE 54; RESP 15; O2SAT 93
[2023-06-22] MEDS ORDERED: ACETAMINOPHEN 325 MG TAB PO PRN (01:00)
[2023-06-22] MEDS ORDERED: ONDANSETRON HCL 4 MG/2 ML VIAL IV PRN (01:00)
[2023-06-22] MEDS ORDERED: ALBUTEROL SULF 2.5 MG/0.5ML(0.5%) NEB SOLN NEB PRN (01:00)
[2023-06-22] MEDS ORDERED: MORPHINE SULFATE INJ 2 MG/ml SYRG IV PRN (01:00)
[2023-06-22] MEDS ORDERED: NITROGLYCERIN 0.4 MG SL TAB SL PRN (01:00)
[2023-06-22 01:02] VITALS: BP 108/62; PULSE 51; RESP 15; TEMP 98.9; O2SAT 93
[2023-06-22] MEDS: HYDROcodone-ACET 5/325MG TAB PO PRN ×3 (02:52→21:50)
[2023-06-22 04:22] LABS: Urine Bacteria NONE SEEN /hpf (None Seen); Urine Blood Negative /uL (Negative); Urine Clarity Clear (Clear); Urine Color Yellow (Yellow); Urine Protein, UAD Negative (Negative); Urine Specific Gravity 1.017 (1.001-1.035); Urine Urobilinogen Normal (Negative); Urine WBC 2 /hpf (0 - 3)
[2023-06-22] MEDS: LEVOTHYROXINE SODIUM 50 MCG TAB PO SCH (08:39)
[2023-06-22 09:46] VITALS: PULSE 75; RESP 16; O2SAT 96
[2023-06-22] MEDS ORDERED: ASPI1TAB20 PO (15:17)
[2023-06-22] MEDS ORDERED: ROSU10TA64 PO (15:19)
[2023-06-22 15:26] LABS: INR 1.07 (0.9-1.15); Partial Thromboplastin Time 29.4 SEC (24.5-34.5); Prothrombin Time 11.2 sec (9.3-11.8)
[2023-06-22 17:00] VITALS: PULSE 57; RESP 19; O2SAT 93
[2023-06-22] MEDS ORDERED: TAMSULOSIN HYDROCHLORIDE 0.4 MG CAP PO SCH (18:00)
[2023-06-22 20:00] VITALS: BP 129/52; PULSE 64; PULSE 70; RESP 19; TEMP 98.3; O2SAT 95
[2023-06-22] MEDS ORDERED: TEMAZEPAM 15 MG CAP PO ONE (21:15)
[2023-06-22 22:00] VITALS: BP 129/52; PULSE 64; RESP 19; TEMP 98.3; O2SAT 95
[2023-06-23] VITALS (7 sets, daily range): BP systolic 106–134; BP diastolic 66–74; PULSE 50–75; RESP 17–18; TEMP 36.9; O2SAT 93–98
[2023-06-23] MEDS: HYDROcodone-ACET 5/325MG TAB PO PRN ×3 (00:52→11:42)
[2023-06-23] MEDS: LEVOTHYROXINE SODIUM 50 MCG TAB PO SCH (06:10)
[2023-06-23 07:03] LABS: Basophils # (auto) 0.1 10 ^3/uL (0-0.2); Eosinophils # (auto) 0.2 10 ^3/uL (0-0.8); Eosinophils % (auto) 2.4 % (0.0-7.0); Hemoglobin 11.6 g/dL (13.5-17.5); Lymphocytes # (auto) 1.6 10 ^3/uL (0.4-5.4); Lymphocytes % (auto) 25.1 % (10.0-50.0); Mean Corpuscular Hemoglobin 31.5 pg (28.0-32.0); Mean Corpuscular Hgb Conc. 33.2 g/dL (32.0-36.0); Mean Corpuscular Volume 94.9 fL (80.0-100.0); Monocytes # (auto) 0.6 10 ^3/uL (0-1.3); Monocytes % (auto) 9.2 % (0.0-12.0); Neutrophils # (auto) 4.1 10 ^3/uL (1.6-8.6); Neutrophils % (auto) 62.3 % (37.0-80.0); Nucleated Red Blood Cells % 0.2 %; Red Blood Cells 3.69 10^6/uL (4.5-5.90); White Blood Cell 6.5 10^3/uL (4.4-10.8)
[2023-06-23 07:09] LABS: Alanine Aminotransferase 69 U/L (7-40); Alkaline Phosphatase 211 U/L (46-116); Anion Gap 6 (5-15); BUN/Creatinine Ratio 13.3 (10.0-20.0); Blood Urea Nitrogen 12 mg/dL (9-23); Calcium 8.9 mg/dL (8.5-10.1); Carbon Dioxide 28 mmol/L (20-30); Chloride 105 mmol/L (98-107); Glucose 81 mg/dL (74-106); Potassium 4.3 mmol/L (3.5-5.1); Sodium 139 mmol/L (136-145)
[2023-06-23 07:10] LABS: Albumin 3.8 g/dL (3.2-4.8); Aspartate Aminotransferase 61 U/L (13-40); Bilirubin, Total 0.8 mg/dL (0.2-1.0); Total Protein 5.9 g/dL (5.7-8.2)
[2023-06-23] MEDS ORDERED: CALCCHW17 PO (12:38)
== END 2023-06-23 13:23 | disposition home or self-care (01) | DRG 988 ==
LOC: EDBD 22:21 → ER 22:26 → TELE 06-22 00:54 → TELE-CENTR 06-22 10:02
PROVIDERS: ADMIT Nurse Practitioner; ATTEND Internal Medicine Pulmonary Disease
PROC: 07BH3ZX Excision of Right Inguinal Lymphatic, Percutaneous Approach, Diagnostic (ICD-10-PCS; principal; 2023-06-23)
DX: R04.2 Hemoptysis (principal); C34.90 Malignant neoplasm of unspecified part of unspecified bronchus or lung; C78.7 Secondary malignant neoplasm of liver and intrahepatic bile duct; E03.9 Hypothyroidism, unspecified; J44.9 Chronic obstructive pulmonary disease, unspecified; E78.5 Hyperlipidemia, unspecified; E66.01 Morbid (severe) obesity due to excess calories; K21.9 Gastro-esophageal reflux disease without esophagitis; R16.0 Hepatomegaly, not elsewhere classified; F17.210 Nicotine dependence, cigarettes, uncomplicated; Z85.118 Personal history of other malignant neoplasm of bronchus and lung; Z86.73 Personal history of transient ischemic attack (TIA), and cerebral infarction without residual deficits; Z88.1 Allergy status to other antibiotic agents; Z68.20 Body mass index [BMI] 20.0-20.9, adult
CPT/HCPCS: 36415; 71045; 76942; 80053; 81001; 83605; 83880; 84484; 85025; 85610; 85730; 86850; 86900; 86901; 87070; 87081; 87205; 93005; G0378

== ENCOUNTER 2023-07-08 10:05 | Emergency (ER) | payer OTHER ==
[~2023-07-08] VITALS: Ht 182.9 cm; Wt 77.2 kg
[~2023-07-08 10:05] MED LIST changes: +ASPI1TAB20 PO; -CALALOT EX; +ROSU10TA64 PO
[2023-07-08 10:54] LABS: Basophils # (auto) 0.1 10 ^3/uL (0-0.2); Basophils % (auto) 0.9 % (0.0-2.0); Eosinophils # (auto) 0.1 10 ^3/uL (0-0.8); Eosinophils % (auto) 1.1 % (0.0-7.0); Hematocrit 34.9 % (41.0-53.0); Hemoglobin 11.4 g/dL (13.5-17.5); Lymphocytes # (auto) 0.9 10 ^3/uL (0.4-5.4); Lymphocytes % (auto) 13.3 % (10.0-50.0); Mean Corpuscular Hemoglobin 31.4 pg (28.0-32.0); Mean Corpuscular Hgb Conc. 32.8 g/dL (32.0-36.0); Mean Corpuscular Volume 95.9 fL (80.0-100.0); Monocytes # (auto) 0.5 10 ^3/uL (0-1.3); Monocytes % (auto) 7.7 % (0.0-12.0); Nucleated Red Blood Cells % 0.3 %; Red Blood Cells 3.64 10^6/uL (4.5-5.90); Red Cell Distribution Width 15.5 % (11.8-14.3); White Blood Cell 6.5 10^3/uL (4.4-10.8)
[2023-07-08 10:59] LABS: Alanine Aminotransferase 67 U/L (7-40); Albumin 3.8 g/dL (3.2-4.8); Alkaline Phosphatase 592 U/L (46-116); Anion Gap 8 (5-15); Aspartate Aminotransferase 128 U/L (13-40); BUN/Creatinine Ratio 15.5 (10.0-20.0); Blood Urea Nitrogen 13 mg/dL (9-23); Calcium 8.9 mg/dL (8.5-10.1); Carbon Dioxide 25 mmol/L (20-30); Chloride 106 mmol/L (98-107); Glucose 89 mg/dL (74-106); Potassium 4.1 mmol/L (3.5-5.1); Sodium 139 mmol/L (136-145)
[2023-07-08] MEDS ORDERED: SODIUM CHLORIDE 0.9% 1,000 ML IV ONE (11:15)
[2023-07-08 11:36] LABS: Magnesium 1.9 mg/dL (1.6-2.6)
[2023-07-08] MEDS ORDERED: KETOROLAC TROMETH 30 MG/ML 1ML VIAL IV ONE (14:00)
[2023-07-08] MEDS ORDERED: METOCLOPRAMIDE HCL 5MG/ml INJ 2ml VIAL IV ONE (14:00)
[2023-07-08 14:22] LABS: Urine Bacteria NONE SEEN /hpf (None Seen); Urine Blood Negative /uL (Negative); Urine Clarity HAZY (Clear); Urine Color Yellow (Yellow); Urine Hyaline Cast FEW /lpf (0 - 2); Urine Mucus MODERATE (None Seen); Urine Protein, UAD 2+ (Negative); Urine Specific Gravity 1.036 (1.001-1.035); Urine WBC 12 /hpf (0 - 3)
[2023-07-08] MEDS ORDERED: DICL50TA2 PO (15:35)
[2023-07-08] MEDS ORDERED: TRAM50TA2 PO (15:35)
[2023-07-08] MEDS ORDERED: CEFD300C2 PO (15:35)
[2023-07-08] MEDS ORDERED: LEVOTHYROXINE SODIUM 100 MCG TAB PO ONE (16:30)
[2023-07-08 16:50] VITALS: BP 109/60; PULSE 77; RESP 17; TEMP 97.9; O2SAT 98
== END 2023-07-08 16:51 | disposition home or self-care (01) ==
LOC: ER 10:05 → EDBD 10:05 → ER 16:49
DX: C34.90 Malignant neoplasm of unspecified part of unspecified bronchus or lung (principal); R91.1 Solitary pulmonary nodule; N39.0 Urinary tract infection, site not specified; E03.9 Hypothyroidism, unspecified; R53.1 Weakness; J44.9 Chronic obstructive pulmonary disease, unspecified; K21.9 Gastro-esophageal reflux disease without esophagitis; F17.210 Nicotine dependence, cigarettes, uncomplicated; Z86.73 Personal history of transient ischemic attack (TIA), and cerebral infarction without residual deficits; Z88.8 Allergy status to other drugs, medicaments and biological substances; Z79.899 Other long term (current) drug therapy; Z79.82 Long term (current) use of aspirin
CPT/HCPCS: 36415; 71046; 80053; 81001; 83690; 83735; 83880; 84443; 84484; 85025; 93005; 96361; 96374; 96375; 99285; J1885; J2765; J7030

== ENCOUNTER 2023-07-17 08:54 | Emergency (ER) | payer OTHER ==
[~2023-07-17] VITALS: Ht 180.3 cm; Wt 80.3 kg
[2023-07-17 09:22] LABS: Basophils # (auto) 0.1 10 ^3/uL (0-0.2); Basophils % (auto) 1.3 % (0.0-2.0); Eosinophils # (auto) 0.1 10 ^3/uL (0-0.8); Hematocrit 37.7 % (41.0-53.0); Hemoglobin 12.2 g/dL (13.5-17.5); Lymphocytes # (auto) 0.8 10 ^3/uL (0.4-5.4); Lymphocytes % (auto) 13.4 % (10.0-50.0); Mean Corpuscular Hemoglobin 31.4 pg (28.0-32.0); Mean Corpuscular Hgb Conc. 32.3 g/dL (32.0-36.0); Monocytes # (auto) 0.6 10 ^3/uL (0-1.3); Neutrophils # (auto) 4.4 10 ^3/uL (1.6-8.6); Neutrophils % (auto) 74.3 % (37.0-80.0); Nucleated Red Blood Cells % 0.6 %; Red Blood Cells 3.88 10^6/uL (4.5-5.90); Red Cell Distribution Width 16.4 % (11.8-14.3); White Blood Cell 5.9 10^3/uL (4.4-10.8)
[2023-07-17 09:37] LABS: INR 1.16 (0.9-1.15); Partial Thromboplastin Time 30.7 SEC (24.5-34.5); Prothrombin Time 12.1 sec (9.3-11.8)
[2023-07-17 09:41] LABS: Alanine Aminotransferase 64 U/L (7-40); Albumin 3.8 g/dL (3.2-4.8); Alkaline Phosphatase 897 U/L (46-116); Anion Gap 11 (5-15); Aspartate Aminotransferase 143 U/L (13-40); BUN/Creatinine Ratio 20.2 (10.0-20.0); Blood Urea Nitrogen 22 mg/dL (9-23); Calcium 9.6 mg/dL (8.5-10.1); Carbon Dioxide 24 mmol/L (20-30); Chloride 106 mmol/L (98-107); Glucose 96 mg/dL (74-106); Potassium 4.3 mmol/L (3.5-5.1); Sodium 141 mmol/L (136-145)
[2023-07-17 09:42] LABS: Bilirubin, Total 1.1 mg/dL (0.2-1.0); Total Protein 6.2 g/dL (5.7-8.2)
[2023-07-17] MEDS ORDERED: SODIUM CHLORIDE 0.9% 1,000 ML IV ONE (10:00)
[2023-07-17 10:42] LABS: Magnesium 2.2 mg/dL (1.6-2.6)
[2023-07-17 11:20] VITALS: BP 97/60; PULSE 90; RESP 17; TEMP 98.7; O2SAT 97
== END 2023-07-17 12:02 | disposition home or self-care (01) ==
LOC: ER 08:54
DX: R55 Syncope and collapse (principal); J44.9 Chronic obstructive pulmonary disease, unspecified; K21.9 Gastro-esophageal reflux disease without esophagitis; E78.5 Hyperlipidemia, unspecified; F17.210 Nicotine dependence, cigarettes, uncomplicated; Z86.73 Personal history of transient ischemic attack (TIA), and cerebral infarction without residual deficits
CPT/HCPCS: 36415; 70450; 71045; 80053; 83735; 84484; 85025; 85610; 85730; 93005; 96360; 96361; 99285; J7030

== ENCOUNTER → 2023-07-17 | Outpatient (CLI) | payer OTHER ==
[~2023-07-17] MED LIST changes: +CEFD300C2 PO; +DICL50TA2 PO; +TRAM50TA2 PO
[2023-07-17 10:05] LABS: Basophils % (auto) 1.3 % (0.0-2.0); Eosinophils # (auto) 0.1 10 ^3/uL (0-0.8); Lymphocytes # (auto) 0.8 10 ^3/uL (0.4-5.4); Lymphocytes % (auto) 13.4 % (10.0-50.0); Monocytes # (auto) 0.6 10 ^3/uL (0-1.3); Neutrophils # (auto) 4.4 10 ^3/uL (1.6-8.6); Neutrophils % (auto) 74.3 % (37.0-80.0); Nucleated Red Blood Cells % 0.6 %; White Blood Cell 5.9 10^3/uL (4.4-10.8)
[2023-07-17 10:06] LABS: Basophils # (auto) 0.1 10 ^3/uL (0-0.2); Hematocrit 37.7 % (41.0-53.0); Hemoglobin 12.2 g/dL (13.5-17.5); Red Blood Cells 3.88 10^6/uL (4.5-5.90)
[2023-07-17 10:07] LABS: Mean Corpuscular Hemoglobin 31.4 pg (28.0-32.0); Mean Corpuscular Hgb Conc. 32.3 g/dL (32.0-36.0); Red Cell Distribution Width 16.4 % (11.8-14.3)
[2023-07-17 10:18] LABS: Alanine Aminotransferase 63 U/L (7-40); Albumin 3.9 g/dL (3.2-4.8); Alkaline Phosphatase 897 U/L (46-116); Anion Gap 12 (5-15); Aspartate Aminotransferase 141 U/L (13-40); Bilirubin, Total 1.1 mg/dL (0.2-1.0); Blood Urea Nitrogen 22 mg/dL (9-23); Calcium 9.6 mg/dL (8.5-10.1); Carbon Dioxide 23 mmol/L (20-30); Chloride 106 mmol/L (98-107); Glucose 96 mg/dL (74-106); Potassium 4.3 mmol/L (3.5-5.1); Sodium 141 mmol/L (136-145); Total Protein 6.2 g/dL (5.7-8.2)
[2023-07-17 10:36] LABS: % Iron Saturation 19.2 % (20-55)
[2023-07-17 11:30] LABS: Carcinoembryonic Antigen 2.84 ng/mL (<=5.0)
== END | disposition home or self-care (01) ==
LOC: LAB 09:47
PROVIDERS: ATTEND Internal Medicine
DX: C77.9 Secondary and unspecified malignant neoplasm of lymph node, unspecified (principal); C43.9 Malignant melanoma of skin, unspecified; D64.9 Anemia, unspecified
CPT/HCPCS: 36415; 80053; 82378; 82607; 82728; 83540; 83550; 85025

== ENCOUNTER 2023-07-20 09:16 | Inpatient (IN) | payer OTHER ==
[~2023-07-20] VITALS: Ht 180.3 cm; Wt 87.0 kg
[2023-07-20] VITALS (7 sets, daily range): BP systolic 117; BP diastolic 63; PULSE 71–88; RESP 18–23; TEMP 97.9; O2SAT 90–97
[2023-07-20 10:04] LABS: Basophils # (auto) 0.1 10 ^3/uL (0-0.2); Eosinophils # (auto) 0.1 10 ^3/uL (0-0.8); Eosinophils % (auto) 0.8 % (0.0-7.0); Lymphocytes # (auto) 0.9 10 ^3/uL (0.4-5.4); Lymphocytes % (auto) 12.1 % (10.0-50.0); Mean Corpuscular Hemoglobin 31.4 pg (28.0-32.0); Mean Corpuscular Hgb Conc. 32.3 g/dL (32.0-36.0); Mean Corpuscular Volume 97.2 fL (80.0-100.0); Monocytes # (auto) 0.6 10 ^3/uL (0-1.3); Monocytes % (auto) 8.7 % (0.0-12.0); Neutrophils # (auto) 5.6 10 ^3/uL (1.6-8.6); Neutrophils % (auto) 77.4 % (37.0-80.0); Nucleated Red Blood Cells % 0.9 %; Red Blood Cells 3.81 10^6/uL (4.5-5.90); Red Cell Distribution Width 16.8 % (11.8-14.3); White Blood Cell 7.3 10^3/uL (4.4-10.8)
[2023-07-20 10:08] LABS: Alanine Aminotransferase 79 U/L (7-40); Albumin 3.5 g/dL (3.2-4.8); Alkaline Phosphatase 911 U/L (46-116); Anion Gap 9 (5-15); Aspartate Aminotransferase 179 U/L (13-40); BUN/Creatinine Ratio 28.9 (10.0-20.0); Bilirubin, Total 1.2 mg/dL (0.2-1.0); Blood Urea Nitrogen 26 mg/dL (9-23); Carbon Dioxide 25 mmol/L (20-30); Chloride 106 mmol/L (98-107); Glucose 90 mg/dL (74-106); Potassium 4.5 mmol/L (3.5-5.1); Sodium 140 mmol/L (136-145)
[2023-07-20 10:09] LABS: Total Protein 5.4 g/dL (5.7-8.2)
[2023-07-20 10:53] LABS: INR 1.23 (0.9-1.15); Partial Thromboplastin Time 31.3 SEC (24.5-34.5); Prothrombin Time 12.7 sec (9.3-11.8)
[2023-07-20] MEDS ORDERED: HYDROcodone-ACET 5/325MG TAB PO ONE (13:45)
[2023-07-20] MEDS ORDERED: ERGOCALCIFEROL 50,000 UNIT(1.25MG) CAP PO SCH (14:45)
[2023-07-20] MEDS ORDERED: methylPREDNISolone SOD SUCC 125 MG/2 ML VL IV ONE (14:45)
[2023-07-20] MEDS ORDERED: AZITHROMYCIN 500MG/ 250ML 250 ML IV ONE (14:45)
[2023-07-20] MEDS ORDERED: cefTRIAXone 1GM/50ML D5W 50 ML IV ONE (14:45)
[2023-07-20 16:02] LABS: Base Excess -3.2 mmol/L (-2.0-2.0)
[2023-07-20] MEDS: SODIUM CHLORIDE 0.9% 1,000 ML IV SCH (16:30)
[2023-07-20] MEDS: MORPHINE SULFATE INJ 2 MG/ml SYRG IV PRN ×2 (18:02→22:46)
[2023-07-20 18:27] LABS: COVID19 ANTIGEN SOFIA FIA NEGATIVE (NEGATIVE)
[2023-07-20 18:28] LABS: Rapid Influenza A Negative (Negative); Rapid Influenza B Negative (Negative)
[2023-07-20] MEDS ORDERED: ALBUTEROL MEDNEB 2.5 mg/3ml NEB ONE ×2 (18:33→22:09)
[2023-07-20] MEDS: CALCIUM CARBONATE CHOLECALCIFE PO SCH (19:15)
[2023-07-20] MEDS: IPRATROPIUM BROM 0.5 MG/2.5ML INH SOL NEB SCH ×2 (19:35→22:33)
[2023-07-20] MEDS: ALBUTEROL SULF 2.5 MG/0.5ML(0.5%) NEB SOLN NEB SCH ×2 (19:36→22:33)
[2023-07-20] MEDS: GABAPENTIN 300 MG CAP PO SCH (22:43)
[2023-07-20] MEDS: CARISOPRODOL 350 MG TAB PO SCH (22:43)
[2023-07-20] MEDS: methylPREDNISolone SOD SUCC 125 MG/2 ML VL IV SCH (22:45)
[2023-07-20] MEDS: ONDANSETRON HCL 4 MG/2 ML VIAL IV PRN (22:46)
[2023-07-20] MEDS: CELECOXIB 100 MG CAP PO SCH (22:53)
[2023-07-21] VITALS (20 sets, daily range): BP systolic 94–107; BP diastolic 54–62; PULSE 58–84; RESP 16–24; TEMP 97.5–98.6; O2SAT 89–97
[2023-07-21] MEDS: SODIUM CHLORIDE 0.9% 1,000 ML IV SCH ×3 (00:23→15:48)
[2023-07-21] MEDS ORDERED: ALBUTEROL MEDNEB 2.5 mg/3ml NEB ONE ×6 (02:09→21:48)
[2023-07-21] MEDS: IPRATROPIUM BROM 0.5 MG/2.5ML INH SOL NEB SCH ×6 (02:19→21:54)
[2023-07-21] MEDS: ALBUTEROL SULF 2.5 MG/0.5ML(0.5%) NEB SOLN NEB SCH ×5 (02:19→18:20)
[2023-07-21 05:45] LABS: Basophils # (auto) 0 10 ^3/uL (0-0.2); Basophils % (auto) 0.4 % (0.0-2.0); Eosinophils # (auto) 0 10 ^3/uL (0-0.8); Hematocrit 32.6 % (41.0-53.0); Hemoglobin 10.6 g/dL (13.5-17.5); Lymphocytes # (auto) 0.5 10 ^3/uL (0.4-5.4); Lymphocytes % (auto) 8.7 % (10.0-50.0); Mean Corpuscular Hemoglobin 31.5 pg (28.0-32.0); Mean Corpuscular Hgb Conc. 32.6 g/dL (32.0-36.0); Mean Corpuscular Volume 96.8 fL (80.0-100.0); Monocytes # (auto) 0.1 10 ^3/uL (0-1.3); Monocytes % (auto) 1.4 % (0.0-12.0); Neutrophils # (auto) 5.6 10 ^3/uL (1.6-8.6); Neutrophils % (auto) 89.5 % (37.0-80.0); Nucleated Red Blood Cells % 0.5 %; Red Blood Cells 3.37 10^6/uL (4.5-5.90); Red Cell Distribution Width 16.8 % (11.8-14.3); White Blood Cell 6.3 10^3/uL (4.4-10.8)
[2023-07-21 06:02] LABS: Alanine Aminotransferase 70 U/L (7-40); Albumin 3.3 g/dL (3.2-4.8); Alkaline Phosphatase 937 U/L (46-116); Anion Gap 9 (5-15); Aspartate Aminotransferase 157 U/L (13-40); BUN/Creatinine Ratio 25.3 (10.0-20.0); Bilirubin, Total 0.8 mg/dL (0.2-1.0); Blood Urea Nitrogen 22 mg/dL (9-23); Calcium 8.3 mg/dL (8.7-10.4); Carbon Dioxide 23 mmol/L (20-30); Chloride 107 mmol/L (98-107); Glucose 176 mg/dL (74-106); Potassium 4.3 mmol/L (3.5-5.1); Sodium 139 mmol/L (136-145); Total Protein 5.3 g/dL (5.7-8.2)
[2023-07-21] MEDS: methylPREDNISolone SOD SUCC 125 MG/2 ML VL IV SCH ×3 (06:37→22:43)
[2023-07-21] MEDS: GABAPENTIN 300 MG CAP PO SCH ×3 (06:37→22:42)
[2023-07-21] MEDS: LEVOTHYROXINE SODIUM 50 MCG TAB PO SCH (07:10)
[2023-07-21] MEDS: CALCIUM CARBONATE CHOLECALCIFE PO SCH ×3 (08:00→18:00)
[2023-07-21] MEDS ORDERED: cefTRIAXone 1GM/50ML D5W 50 ML IV SCH (09:00)
[2023-07-21] MEDS: CELECOXIB 100 MG CAP PO SCH ×2 (09:43→22:42)
[2023-07-21] MEDS: TAMSULOSIN HYDROCHLORIDE 0.4 MG CAP PO SCH (09:44)
[2023-07-21] MEDS: ASPirin-EC 81 mg tab PO SCH (09:44)
[2023-07-21] MEDS: FAMOTIDINE 20 MG TAB PO SCH (09:44)
[2023-07-21] MEDS: CARISOPRODOL 350 MG TAB PO SCH ×2 (09:44→22:00)
[2023-07-21] MEDS: MORPHINE SULFATE INJ 2 MG/ml SYRG IV PRN ×2 (09:50→18:12)
[2023-07-21] MEDS: AZITHROMYCIN 500MG/ 250ML 250 ML IV SCH (09:51)
[2023-07-21] MEDS ORDERED: PIPERACILLIN-TAZOB 3.375GM 100 ML IV ONE (17:00)
[2023-07-21] MEDS: PIPERACILLIN-TAZOB 3.375GM 100 ML IV SCH (23:01)
[2023-07-22] VITALS (16 sets, daily range): BP systolic 91–100; BP diastolic 52–60; PULSE 73–90; RESP 16–20; TEMP 97.5–98.6; O2SAT 91–95
[2023-07-22] MEDS: SODIUM CHLORIDE 0.9% 1,000 ML IV SCH ×3 (00:05→17:46)
[2023-07-22] MEDS: ALBUTEROL SULF 2.5 MG/0.5ML(0.5%) NEB SOLN NEB SCH ×4 (02:00→10:00)
[2023-07-22] MEDS: IPRATROPIUM BROM 0.5 MG/2.5ML INH SOL NEB SCH ×6 (02:14→22:36)
[2023-07-22] MEDS: methylPREDNISolone SOD SUCC 125 MG/2 ML VL IV SCH ×3 (06:11→22:25)
[2023-07-22] MEDS: LEVOTHYROXINE SODIUM 50 MCG TAB PO SCH (06:12)
[2023-07-22] MEDS: GABAPENTIN 300 MG CAP PO SCH ×3 (06:12→22:23)
[2023-07-22] MEDS: IBUPROFEN 400 MG TAB PO PRN ×2 (06:24→06:30)
[2023-07-22 07:16] LABS: Alanine Aminotransferase 62 U/L (7-40); Albumin 3.4 g/dL (3.2-4.8); Alkaline Phosphatase 775 U/L (46-116); Anion Gap 10 (5-15); Aspartate Aminotransferase 112 U/L (13-40); BUN/Creatinine Ratio 25.3 (10.0-20.0); Basophils # (auto) 0 10 ^3/uL (0-0.2); Basophils % (auto) 0.2 % (0.0-2.0); Blood Urea Nitrogen 25 mg/dL (9-23); Calcium 8.4 mg/dL (8.5-10.1); Carbon Dioxide 22 mmol/L (20-30); Chloride 107 mmol/L (98-107); Eosinophils # (auto) 0 10 ^3/uL (0-0.8); Glucose 130 mg/dL (74-106); Hemoglobin 10.8 g/dL (13.5-17.5); Lymphocytes # (auto) 0.7 10 ^3/uL (0.4-5.4); Lymphocytes % (auto) 6.2 % (10.0-50.0); Mean Corpuscular Hemoglobin 31.8 pg (28.0-32.0); Mean Corpuscular Hgb Conc. 32.6 g/dL (32.0-36.0); Mean Corpuscular Volume 97.7 fL (80.0-100.0); Monocytes # (auto) 0.4 10 ^3/uL (0-1.3); Monocytes % (auto) 3.7 % (0.0-12.0); Neutrophils % (auto) 89.9 % (37.0-80.0); Nucleated Red Blood Cells % 0.3 %; Potassium 4.5 mmol/L (3.5-5.1); Red Blood Cells 3.38 10^6/uL (4.5-5.90); Red Cell Distribution Width 16.9 % (11.8-14.3); Sodium 139 mmol/L (136-145); White Blood Cell 11.1 10^3/uL (4.4-10.8)
[2023-07-22] MEDS ORDERED: ALBUTEROL MEDNEB 2.5 mg/3ml NEB ONE ×2 (07:16→09:54)
[2023-07-22 07:17] LABS: Bilirubin, Total 0.8 mg/dL (0.2-1.0); Total Protein 5.3 g/dL (5.7-8.2)
[2023-07-22] MEDS: CALCIUM CARBONATE CHOLECALCIFE PO SCH ×3 (08:00→17:11)
[2023-07-22] MEDS: CYANOCOBALAMIN 500 MCG TAB PO SCH (08:00)
[2023-07-22] MEDS: FAMOTIDINE 20 MG TAB PO SCH (09:53)
[2023-07-22] MEDS: ENOXAPARIN SOD 40 MG/0.4 ML SYRINGE SC SCH (09:53)
[2023-07-22] MEDS: PIPERACILLIN-TAZOB 3.375GM 100 ML IV SCH ×2 (09:53→17:45)
[2023-07-22] MEDS: CELECOXIB 100 MG CAP PO SCH ×2 (09:53→22:23)
[2023-07-22] MEDS: TAMSULOSIN HYDROCHLORIDE 0.4 MG CAP PO SCH (09:53)
[2023-07-22] MEDS: CARISOPRODOL 350 MG TAB PO SCH ×2 (09:53→22:23)
[2023-07-22] MEDS: AZITHROMYCIN 500MG/ 250ML 250 ML IV SCH (09:55)
[2023-07-22] MEDS: ASPirin-EC 81 mg tab PO SCH (09:57)
[2023-07-22] MEDS: HYDROcodone-ACET 10/325MG TAB PO PRN ×2 (13:37→22:23)
[2023-07-22] MEDS: ALBUTEROL MEDNEB 2.5 mg/3ml NEB NEB SCH ×3 (14:00→22:37)
[2023-07-23] VITALS (19 sets, daily range): BP systolic 91–105; BP diastolic 51–62; PULSE 79–91; RESP 16–20; TEMP 97.6–98.2; O2SAT 92–100
[2023-07-23] MEDS: SODIUM CHLORIDE 0.9% 1,000 ML IV SCH ×3 (01:05→17:45)
[2023-07-23] MEDS: PIPERACILLIN-TAZOB 3.375GM 100 ML IV SCH ×4 (01:33→23:29)
[2023-07-23] MEDS: IPRATROPIUM BROM 0.5 MG/2.5ML INH SOL NEB SCH ×6 (06:00→22:25)
[2023-07-23] MEDS: LEVOTHYROXINE SODIUM 50 MCG TAB PO SCH (06:19)
[2023-07-23] MEDS: GABAPENTIN 300 MG CAP PO SCH ×3 (06:19→21:31)
[2023-07-23] MEDS: methylPREDNISolone SOD SUCC 125 MG/2 ML VL IV SCH ×3 (06:20→21:31)
[2023-07-23] MEDS: HYDROcodone-ACET 10/325MG TAB PO PRN ×3 (06:31→21:32)
[2023-07-23] MEDS: DOCUSATE SOD 100 MG CAP PO PRN (06:31)
[2023-07-23] MEDS: ALBUTEROL MEDNEB 2.5 mg/3ml NEB NEB SCH ×5 (07:08→22:25)
[2023-07-23] MEDS: CALCIUM CARBONATE CHOLECALCIFE PO SCH ×3 (08:00→17:45)
[2023-07-23 08:04] LABS: Basophils # (auto) 0 10 ^3/uL (0-0.2); Basophils % (auto) 0.1 % (0.0-2.0); Eosinophils # (auto) 0 10 ^3/uL (0-0.8); Hematocrit 33.8 % (41.0-53.0); Hemoglobin 10.7 g/dL (13.5-17.5); Lymphocytes # (auto) 0.7 10 ^3/uL (0.4-5.4); Lymphocytes % (auto) 6.1 % (10.0-50.0); Mean Corpuscular Hemoglobin 30.8 pg (28.0-32.0); Mean Corpuscular Hgb Conc. 31.6 g/dL (32.0-36.0); Mean Corpuscular Volume 97.6 fL (80.0-100.0); Monocytes # (auto) 0.3 10 ^3/uL (0-1.3); Neutrophils # (auto) 10.1 10 ^3/uL (1.6-8.6); Neutrophils % (auto) 90.8 % (37.0-80.0); Nucleated Red Blood Cells % 0.2 %; Red Blood Cells 3.46 10^6/uL (4.5-5.90); Red Cell Distribution Width 17.7 % (11.8-14.3); White Blood Cell 11.1 10^3/uL (4.4-10.8)
[2023-07-23 08:22] LABS: Alanine Aminotransferase 66 U/L (7-40); Albumin 3.3 g/dL (3.2-4.8); Alkaline Phosphatase 752 U/L (46-116); Anion Gap 11 (5-15); Aspartate Aminotransferase 107 U/L (13-40); BUN/Creatinine Ratio 35.3 (10.0-20.0); Calcium 8.2 mg/dL (8.5-10.1); Carbon Dioxide 21 mmol/L (20-30); Chloride 108 mmol/L (98-107); Glucose 147 mg/dL (74-106); Potassium 4.6 mmol/L (3.5-5.1); Sodium 140 mmol/L (136-145)
[2023-07-23 08:23] LABS: Bilirubin, Total 0.8 mg/dL (0.2-1.0); Total Protein 5.1 g/dL (5.7-8.2)
[2023-07-23 08:24] LABS: Blood Urea Nitrogen 36 mg/dL (9-23)
[2023-07-23] MEDS: CYANOCOBALAMIN 500 MCG TAB PO SCH (08:37)
[2023-07-23] MEDS: AZITHROMYCIN 500MG/ 250ML 250 ML IV SCH (08:37)
[2023-07-23] MEDS: TAMSULOSIN HYDROCHLORIDE 0.4 MG CAP PO SCH (08:38)
[2023-07-23] MEDS: CARISOPRODOL 350 MG TAB PO SCH ×2 (08:38→21:32)
[2023-07-23] MEDS: ENOXAPARIN SOD 40 MG/0.4 ML SYRINGE SC SCH (08:38)
[2023-07-23] MEDS: FAMOTIDINE 20 MG TAB PO SCH (08:38)
[2023-07-23] MEDS: CELECOXIB 100 MG CAP PO SCH ×2 (08:39→21:31)
[2023-07-23] MEDS: ASPirin-EC 81 mg tab PO SCH (08:39)
[2023-07-23 09:21] LABS: Magnesium 2.4 mg/dL (1.6-2.6)
[2023-07-24] VITALS (15 sets, daily range): BP systolic 98–105; BP diastolic 50–56; PULSE 69–87; RESP 15–20; TEMP 97.4–98.1; O2SAT 92–100
[2023-07-24] MEDS: ALBUTEROL MEDNEB 2.5 mg/3ml NEB NEB SCH ×6 (02:00→22:00)
[2023-07-24] MEDS: IPRATROPIUM BROM 0.5 MG/2.5ML INH SOL NEB SCH ×6 (02:00→22:00)
[2023-07-24] MEDS: SODIUM CHLORIDE 0.9% 1,000 ML IV SCH ×3 (02:05→18:26)
[2023-07-24] MEDS: DOCUSATE SOD 100 MG CAP PO PRN (05:52)
[2023-07-24] MEDS: GABAPENTIN 300 MG CAP PO SCH ×3 (05:52→21:50)
[2023-07-24] MEDS: LEVOTHYROXINE SODIUM 50 MCG TAB PO SCH (05:52)
[2023-07-24] MEDS: methylPREDNISolone SOD SUCC 125 MG/2 ML VL IV SCH ×3 (05:54→21:50)
[2023-07-24 06:42] LABS: Basophils # (auto) 0 10 ^3/uL (0-0.2); Basophils % (auto) 0.1 % (0.0-2.0); Eosinophils # (auto) 0 10 ^3/uL (0-0.8); Hematocrit 35.2 % (41.0-53.0); Hemoglobin 11.1 g/dL (13.5-17.5); Lymphocytes # (auto) 0.7 10 ^3/uL (0.4-5.4); Lymphocytes % (auto) 6.3 % (10.0-50.0); Mean Corpuscular Hemoglobin 30.9 pg (28.0-32.0); Mean Corpuscular Hgb Conc. 31.6 g/dL (32.0-36.0); Mean Corpuscular Volume 97.9 fL (80.0-100.0); Monocytes # (auto) 0.6 10 ^3/uL (0-1.3); Neutrophils # (auto) 10.4 10 ^3/uL (1.6-8.6); Neutrophils % (auto) 88.6 % (37.0-80.0); Nucleated Red Blood Cells % 0.2 %; Red Cell Distribution Width 17.8 % (11.8-14.3); White Blood Cell 11.8 10^3/uL (4.4-10.8)
[2023-07-24 07:10] LABS: Alanine Aminotransferase 63 U/L (7-40); Alkaline Phosphatase 697 U/L (46-116); Anion Gap 9 (5-15); BUN/Creatinine Ratio 24.5 (10.0-20.0); Calcium 8.6 mg/dL (8.5-10.1); Carbon Dioxide 23 mmol/L (20-30); Chloride 107 mmol/L (98-107); Glucose 109 mg/dL (74-106); Potassium 4.8 mmol/L (3.5-5.1); Sodium 139 mmol/L (136-145)
[2023-07-24 07:12] LABS: Albumin 3.5 g/dL (3.2-4.8); Aspartate Aminotransferase 92 U/L (13-40); Bilirubin, Total 0.8 mg/dL (0.2-1.0); Total Protein 5.6 g/dL (5.7-8.2)
[2023-07-24 07:18] LABS: Blood Urea Nitrogen 26 mg/dL (9-23)
[2023-07-24 07:34] LABS: Magnesium 2.6 mg/dL (1.6-2.6)
[2023-07-24] MEDS: PIPERACILLIN-TAZOB 3.375GM 100 ML IV SCH ×3 (07:34→23:14)
[2023-07-24] MEDS: AZITHROMYCIN 500MG/ 250ML 250 ML IV SCH (07:34)
[2023-07-24] MEDS: ENOXAPARIN SOD 40 MG/0.4 ML SYRINGE SC SCH (07:34)
[2023-07-24] MEDS: CYANOCOBALAMIN 500 MCG TAB PO SCH (07:35)
[2023-07-24] MEDS: HYDROcodone-ACET 10/325MG TAB PO PRN ×3 (07:35→18:05)
[2023-07-24] MEDS: CARISOPRODOL 350 MG TAB PO SCH ×2 (07:35→21:49)
[2023-07-24] MEDS: CELECOXIB 100 MG CAP PO SCH ×2 (07:35→21:49)
[2023-07-24] MEDS: ASPirin-EC 81 mg tab PO SCH (07:35)
[2023-07-24] MEDS: FAMOTIDINE 20 MG TAB PO SCH (07:36)
[2023-07-24] MEDS: CALCIUM CARBONATE CHOLECALCIFE PO SCH ×3 (07:36→17:53)
[2023-07-24] MEDS: TAMSULOSIN HYDROCHLORIDE 0.4 MG CAP PO SCH (07:36)
[2023-07-24] MEDS: ONDANSETRON HCL 4 MG/2 ML VIAL IV PRN (18:05)
[2023-07-25] VITALS (12 sets, daily range): BP systolic 94–111; BP diastolic 53–63; PULSE 69–84; RESP 16–19; TEMP 97.5–98.8; O2SAT 92–96
[2023-07-25] MEDS: DOCUSATE SOD 100 MG CAP PO PRN (01:52)
[2023-07-25] MEDS: HYDROcodone-ACET 10/325MG TAB PO PRN ×5 (01:53→22:31)
[2023-07-25] MEDS: ONDANSETRON HCL 4 MG/2 ML VIAL IV PRN ×2 (01:53→05:51)
[2023-07-25] MEDS: IPRATROPIUM BROM 0.5 MG/2.5ML INH SOL NEB SCH ×6 (02:00→22:00)
[2023-07-25] MEDS: ALBUTEROL MEDNEB 2.5 mg/3ml NEB NEB SCH ×6 (02:00→22:00)
[2023-07-25] MEDS: IBUPROFEN 400 MG TAB PO PRN (04:42)
[2023-07-25] MEDS: SODIUM CHLORIDE 0.9% 1,000 ML IV SCH ×3 (05:01→19:45)
[2023-07-25] MEDS: GABAPENTIN 300 MG CAP PO SCH ×3 (05:51→22:29)
[2023-07-25] MEDS: methylPREDNISolone SOD SUCC 125 MG/2 ML VL IV SCH ×3 (05:51→22:43)
[2023-07-25] MEDS: LEVOTHYROXINE SODIUM 50 MCG TAB PO SCH ×2 (05:52→08:31)
[2023-07-25 06:33] LABS: Anion Gap 8 (5-15); Carbon Dioxide 23 mmol/L (20-30); Chloride 109 mmol/L (98-107); Sodium 140 mmol/L (136-145)
[2023-07-25 06:35] LABS: Calcium 8.1 mg/dL (8.5-10.1)
[2023-07-25 06:39] LABS: BUN/Creatinine Ratio 26.3 (10.0-20.0); Blood Urea Nitrogen 25 mg/dL (9-23); Glucose 111 mg/dL (74-106)
[2023-07-25 07:05] LABS: Basophils # (auto) 0 10 ^3/uL (0-0.2); Basophils % (auto) 0.1 % (0.0-2.0); Eosinophils # (auto) 0 10 ^3/uL (0-0.8); Hematocrit 32.5 % (41.0-53.0); Hemoglobin 10.7 g/dL (13.5-17.5); Lymphocytes # (auto) 0.5 10 ^3/uL (0.4-5.4); Lymphocytes % (auto) 5.4 % (10.0-50.0); Mean Corpuscular Hemoglobin 32.2 pg (28.0-32.0); Mean Corpuscular Hgb Conc. 32.8 g/dL (32.0-36.0); Mean Corpuscular Volume 98.3 fL (80.0-100.0); Monocytes # (auto) 0.4 10 ^3/uL (0-1.3); Monocytes % (auto) 4.5 % (0.0-12.0); Nucleated Red Blood Cells % 0.1 %; Red Blood Cells 3.31 10^6/uL (4.5-5.90); Red Cell Distribution Width 17.9 % (11.8-14.3)
[2023-07-25 07:21] LABS: Albumin 3.3 g/dL (3.2-4.8); Bilirubin, Direct 0.6 mg/dL (<0.3); Bilirubin, Total 0.9 mg/dL (0.2-1.0); Total Protein 5.2 g/dL (5.7-8.2)
[2023-07-25] MEDS: CALCIUM CARBONATE CHOLECALCIFE PO SCH ×3 (08:00→18:00)
[2023-07-25] MEDS: CELECOXIB 100 MG CAP PO SCH ×2 (08:31→22:29)
[2023-07-25] MEDS: TAMSULOSIN HYDROCHLORIDE 0.4 MG CAP PO SCH (08:32)
[2023-07-25] MEDS: CARISOPRODOL 350 MG TAB PO SCH ×2 (08:32→22:29)
[2023-07-25] MEDS: FAMOTIDINE 20 MG TAB PO SCH (08:32)
[2023-07-25] MEDS: ENOXAPARIN SOD 40 MG/0.4 ML SYRINGE SC SCH (08:33)
[2023-07-25] MEDS: ASPirin-EC 81 mg tab PO SCH (08:35)
[2023-07-25] MEDS: CYANOCOBALAMIN 500 MCG TAB PO SCH (09:10)
[2023-07-25] MEDS: AZITHROMYCIN 500MG/ 250ML 250 ML IV SCH (09:11)
[2023-07-25] MEDS: PIPERACILLIN-TAZOB 3.375GM 100 ML IV SCH ×2 (09:11→16:00)
[2023-07-25] MEDS ORDERED: AZITHROMYCIN 250 MG TAB PO SCH (10:00)
[2023-07-26] MEDS: IBUPROFEN 400 MG TAB PO PRN (01:36)
[2023-07-26] MEDS: PIPERACILLIN-TAZOB 3.375GM 100 ML IV SCH (01:36)
[2023-07-26] MEDS: IPRATROPIUM BROM 0.5 MG/2.5ML INH SOL NEB SCH ×3 (02:00→09:59)
[2023-07-26] MEDS: ALBUTEROL MEDNEB 2.5 mg/3ml NEB NEB SCH ×3 (02:00→09:59)
[2023-07-26] MEDS: SODIUM CHLORIDE 0.9% 1,000 ML IV SCH (04:05)
[2023-07-26 05:00] VITALS: BP 108/54; PULSE 75; RESP 20; TEMP 98.2; O2SAT 92
[2023-07-26] MEDS: HYDROcodone-ACET 10/325MG TAB PO PRN ×2 (05:29→08:25)
[2023-07-26] MEDS: GABAPENTIN 300 MG CAP PO SCH (05:29)
[2023-07-26] MEDS: methylPREDNISolone SOD SUCC 125 MG/2 ML VL IV SCH (05:32)
[2023-07-26 06:20] VITALS: PULSE 76; RESP 18; O2SAT 93; O2SAT 95
[2023-07-26 06:32] VITALS: PULSE 74; RESP 18; O2SAT 94
[2023-07-26 08:00] VITALS: PULSE 80
[2023-07-26 09:00] VITALS: BP 114/62; PULSE 73; RESP 18; TEMP 97.4; O2SAT 94
== END 2023-07-26 09:20 | disposition hospice, inpatient (51) | DRG 180 ==
LOC: EDBD 09:16 → ER 09:16 → TELE 14:50 → TELE-WESTW 07-21 08:42
PROVIDERS: ADMIT Internal Medicine Geriatric Medicine; ATTEND Student in an Organized Health Care Education/Training Program
DX: C34.90 Malignant neoplasm of unspecified part of unspecified bronchus or lung (principal); J11.08 Influenza due to unidentified influenza virus with specified pneumonia; J96.01 Acute respiratory failure with hypoxia; J15.9 Unspecified bacterial pneumonia; J44.1 Chronic obstructive pulmonary disease with (acute) exacerbation; J44.0 Chronic obstructive pulmonary disease with (acute) lower respiratory infection; C78.7 Secondary malignant neoplasm of liver and intrahepatic bile duct; C78.00 Secondary malignant neoplasm of unspecified lung; R74.01 Elevation of levels of liver transaminase levels; D63.8 Anemia in other chronic diseases classified elsewhere; Z20.822 Contact with and (suspected) exposure to COVID-19; R79.1 Abnormal coagulation profile; C43.9 Malignant melanoma of skin, unspecified; E03.9 Hypothyroidism, unspecified; E78.5 Hyperlipidemia, unspecified; F17.210 Nicotine dependence, cigarettes, uncomplicated; Y90.9 Presence of alcohol in blood, level not specified; K21.9 Gastro-esophageal reflux disease without esophagitis; F10.10 Alcohol abuse, uncomplicated; Z86.73 Personal history of transient ischemic attack (TIA), and cerebral infarction without residual deficits; Z88.1 Allergy status to other antibiotic agents; Z82.49 Family history of ischemic heart disease and other diseases of the circulatory system; Z85.820 Personal history of malignant melanoma of skin
CPT/HCPCS: 36415; 36600; 71045; 71250; 80048; 80053; 80076; 82805; 82962; 83735; 83880; 84484; 85025; 85610; 85730; 87070; 87205; 87426; 87804; 93005; 94640; 96365; 96366; 96375; G0378; J0696; J2405; J2543